=== PATIENT | female | born 1950 | race Caucasian/White ===

== ENCOUNTER 2023-10-18 14:33 | Outpatient (CLI) | payer MEDICARE, SELFPAY ==
--- NOTE | 2023-10-18 14:30 | CRLHL7_ITS ---
For Patients: As a result of the Century Cures Act, medical imaging exams and procedure reports are released immediately into your electronic medical record. You may view this report before your referring provider. If you have questions, please contact your health care provider. DXA BONE MINERAL DENSITY STUDY Reason for exam: Postmenopausal. Current height (in): 69. Weight (lb): 190 Menopause age: Not provided. Ethnicity: White. 1. Have you had a previous hip or vertebral fracture? No. 2. Have you had any fractures during your adult life which did not result from significant trauma (e.g., auto accident)? Yes. 3. Did either of your parents have a hip fracture? No. 4. Do you smoke? No. 5. Have you ever taken Glucocorticoids? No. 6. Do you have rheumatoid arthritis? No. 7. Do you have secondary osteoporosis? No. 8. Do you drink 3 or more alcoholic drinks per day? No. 9. Are you being treated for osteoporosis? No. 10. Have you ever taken any of the following medications: Actonel, Evista, Fosamax, Miacalcin, Reclast, Boniva, Forteo, HRT (i.e., estrogen/hormone therapy), Protelos, Prolia, Vitamin D, Calcium, other ??? please specify. ANSWER: Yes, vitamin D and calcium. 11. Do you have any of the following medical conditions: Anorexia or bulimia, asthma or emphysema, end stage renal disease, hyperparathyroidism, any seizure disorders, cancer, inflammatory bowel diseases, hysterectomy, other ??? please specify. ANSWER: Yes, any seizure disorders. Cancer. 12. What was your maximum height (inches)? 69. 13. Do you perform weight bearing exercise regularly? Yes. 14. Do you regularly consume dairy products? No. 15. Do you drink caffeinated beverages? Yes. If female: 16. At what age did your period start? 15. 17. Are you premenopausal? No. 18. How many full-term pregnancies have you had? 1. 19. Have you ever missed your period for more than 6 months in a row (not including or menopause)? No. TECHNIQUE: Bone mineral density study was performed using the [employer]. FINDINGS: The results of the study expressed as bone mineral density (BMD) are as follows: Neck Left: BMD: 0.796 g/cm2. T-score: -0.5. Z-score: 1.4 Right: BMD: 0.682 g/cm2. T-score: -1.5. Z-score: 0.4 Total Left: BMD: 0.858 g/cm2. T-score: -0.7. Z-score: 0.9 Right: BMD: 0.785 g/cm2. T-score: -1.3. Z-score: 0.3 Radius Left 33%: BMD: 0.663 g/cm2. T-score: -0.5. Z-score: 1.7 IMPRESSION: Osteopenia. *Comparison exams done prior to 04/2020 were performed on different unit, MMIS. COMPARISON: Compared with scan of 07/04/2016, the bone mineral density has increased by 0.5 percent at the hip. FRAX 10-year Fracture Risk Major Osteoporotic Fracture: 16% Hip Fracture: 2.4% Reported Risk Factors: [place] () Neck BMD=0.682, BMI= 28.1, previous fracture Alberto Tejeda M.D. Diagnostic Radiologist [email or web address] PRANEETH/soo vann/Dictated by: Alberto Tejeda MD @ 10/20/2023 10:40:00 AM (Electronically Signed)
--- NOTE | 2023-10-18 15:00 | CRLHL7_ITS ---
For Patients: As a result of the Century Cures Act, medical imaging exams and procedure reports are released immediately into your electronic medical record. You may view this report before your referring provider. If you have questions, please contact your health care provider. BILATERAL SCREENING MAMMOGRAM WITH COMPUTER-AIDED DETECTION AND TOMOSYNTHESIS TECHNIQUE: CC and MLO views were obtained. These mammographic images have been obtained using full-field digital technique. These mammographic images were interpreted with the benefit of computer-aided detection. Breast Tomosynthesis was used in this interpretation. COMPARISON FILM: 02/01/22, 12/01/20, 08/13/19. FINDINGS: The breasts are heterogeneously dense, which may obscure small masses IMPRESSION: There is no radiographic evidence for malignancy. ASSESSMENT: BI-RADS Category 1: Negative RECOMMENDATION: Routine screening mammogram in 1 year. A lay language report of this examination will be provided to the patient. Alberto Tejeda M.D. Diagnostic Radiologist [email or web address] PRANEETH/aníbal / be/Dictated by: Alberto Tejeda MD @ 10/20/2023 10:08:00 AM (Electronically Signed)
== END 2023-10-18 14:34 | disposition home or self-care (01) ==
LOC: RAD 14:33
PROVIDERS: Visit Provider Family Medicine
DX: Z12.31 Encounter for screening mammogram for malignant neoplasm of breast (principal); R92.2 Inconclusive mammogram; Z78.0 Asymptomatic menopausal state; M85.89 Other specified disorders of bone density and structure, multiple sites
CPT/HCPCS: 77063; 77067; 77080

== ENCOUNTER 2024-05-07 06:22 | Day surgery (SDC) | payer MEDICARE, SELFPAY ==
[2024-05-07] VITALS (9 sets, daily range): BP systolic 126–144; BP diastolic 60–74; PULSE 71–77; RESP 16; TEMP 36.4; O2SAT 95–100; BMI 29.6
[2024-05-07] MEDS: BUPIVACAINE 0.5 %/EPI 1:200K INJECTION (07:05)
--- NOTE | 2024-05-07 07:48 | P.ORPRC_ITS ---
Procedure Note Date of procedure: 05/07/24 Procedure: Preop diagnosis: Left hand middle finger stenosing tenosynovitis Postop diagnosis: Left hand middle finger stenosing tenosynovitis Procedure: Left hand middle finger A1 jaky release Anesthesia: Local Surgeon: Bharat Abraham MD assistant professor of criminal justice: Rose Marie Hawkins PA-C EBL: 1 mL Complications: None Specimens: None Drains: None Preoperative antibiotics: None Indications: The patient has a history of left upper extremity middle finger painful catching and locking. Despite appropriate non operative management including flexor tendon sheath corticosteroid injections they continue to have symptoms. Operative intervention was recommended. The risks, benefits alternatives and expected outcomes were discussed in detail. These included but were not limited to: Infection, bleeding, injury to blood vessel or nerve, venous thromboembolism. All questions were answered to their satisfaction. The patient was placed supine on the operating room table. Local anesthesia was established with 0.5% Marcaine with epinephrine and 2% lidocaine with epinephrine. The hand was prepped and draped in the usual sterile fashion. A transverse incision was made centered over the base of the middle finger in the distal palmar crease. Subcutaneous dissection was taken through the palmar fascia to the flexor tendons with the tenotomy scissors. The A1 jaky was released with the 15 blade and tenotomy scissors. Active flexion and extension of the finger shows no catching or locking, no bowstringing of the flexor tendons. The wound was closed with interrupted nylon sutures. A dry dressing was applied. Sponge and needle counts were correct x 2. The patient tolerated the procedure well, there were no apparent complications. They were sent to same day surgery in satisfactory condition. Plan: Use of the hand as tolerates. Discontinue the intraoperative dressing on postoperative day 3 and may get the wound wet as tolerates. Follow up in the office in 2 weeks for a wound check and suture removal.
== END 2024-05-07 08:09 | disposition home or self-care (01) ==
LOC: OR 06:24
PROVIDERS: PCP Family Medicine; Visit Provider Orthopaedic Surgery
PROC: (CPT 26055; principal; 2024-05-07 07:15)
DX: M65.332 Trigger finger, left middle finger (principal); M65.842 Other synovitis and tenosynovitis, left hand
CPT/HCPCS: 26055; J3490

== ENCOUNTER 2024-10-31 12:30 | Outpatient (RCR) | payer MEDICARE, SELFPAY ==
--- NOTE | 2024-08-22 18:31 | OT.OPOE ---
OT Outpatient Ortho Eval OT Outpatient Ortho Eval* Start: 08/22/24 15:30 Freq: Status: Active Protocol: Document 08/22/24 15:30 AMB (Rec: 08/22/24 18:28 AMB [id number]) E-signed By Alejandra Castrejon, OTR/L, CLT, DIRECTOR OF PERSONNEL OT OP Ortho Eval Details Complexity Complexity Low Insurance Information Insurance Information [employer] Outpatient History/Precautions Current Condition/Medical Diagnosis Referring Provider Dr Abraham Medical Diagnoses Z98.89 LUE MF TF release Treatment Diagnosis Weakness LUE R53.1 Stiffness LUE hand M25.642 Hand pain M79.643 Date of Onset DOS: 05/07/24 Other Conditions PMH (copied from ortho chart): Active Problems (Reviewed @ 10:32 by Germaine Antoine ~ LAT ATC) Stiffness of finger joint of left hand (Acute) M25.642 - Stiffness of left hand, not elsewhere classified (ICD-10) S/P trigger finger release ( Acute 05/07/24) left hand middle finger A1 jaky release (05/07/2024, Dr. Abraham) Z98.890 - Other specified postprocedural states (ICD-10) Left radial neuritis (Acute) G56.32 - Lesion of radial nerve, left upper limb (ICD-10 ) History of carpal tunnel release (Acute 02/15/22) left CTR (02/15/2022, Dr. Abraham) Right upper extremity carpal tunnel release (09/28/2018, Dr. Abraham) Z98.890 - Other specified postprocedural states (ICD-10) Medical History (Reviewed @ 10:32 by Germaine Antoine ~ LAT ATC) Sprain of left wrist S63.502A - Unspecified sprain of left wrist, initial encounter (ICD-10) Hepatitis K75.9 - Inflammatory liver disease, unspecified (ICD-10) Fracture of distal end of radius S52.509A - Unspecified fracture of the lower end of unspecified radius, initial encounter for closed fracture (ICD-10) Epilepsy G40.909 - Epilepsy, unspecified, not intractable, without status epilepticus ( ICD-10) Depression F32.A - Depression, unspecified (ICD-10) Seizures R56.9 - Unspecified convulsions (ICD-10) Surgical History (Reviewed @ 10:32 by Germaine Antoine ~ LAT ATC) S/P trigger finger release () Z98.890 - Other specified postprocedural states (ICD-10) History of back surgery Z98.890 - Other specified postprocedural states (ICD-10) Hx of neck surgery Z98.890 - Other specified postprocedural states (ICD-10) S/P trigger finger release () Z98.890 - Other specified postprocedural states (ICD-10) History of carpal tunnel release (02/15/22) Z98.890 - Other specified postprocedural states (ICD-10) Medical/Functional History Medical History Reviewed Yes Prior Level of Function/Mobility Prior to onset of TF, pt did not have pain in her left hand /MF. Social History Employment Status Retired Hobbies [employer] Walking Ortho Subjective Subjective Subjective Pt states she had TF release on 05/07/24 and has been having pain and stiffness ever since , she does not feel the surgery was successful as she feels her finger is still clicking and getting stuck. Pt states she has pain pretty much all the time, but worse in the morning. 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 Hand Pinch/Msw Strength Hand Pinch/Msw Strength Hand Pinch/Msw Strength Left Hand,Right Hand Left Hand Msw Strength Position 1 in Elbow 45 Flexion (lbs) Lateral Pinch Strength (lbs) 12 Three Point Pinch (lbs) 10 Right Hand Msw Strength Position 1 in Elbow 60 Flexion (lbs) Lateral Pinch Strength (lbs) 12 Three Point Pinch (lbs) 12 OT Objective Data Hand Hand Dominance Right Skin/Wounds/Edema Comments 08/22/24 Surgical incisions are well healed. Scar is quite thick and adhered. Pt also has Dupuytren's cording and the surgical scar almost appears to be connected to it, if not connected, it is very close and seems to rub on it. Fascial restrictions are present throughout the palm as well. OT Problems Problems Problems Decreased Strength,Decreased Range of Motion,Decreased Dexterity,Lifting,Gripping Other Problems Opening Containers,Sleeping Patient Potential Good Assessment Assessment Assessment Pt is a 74yo referred to OT to address pain, edema, weakness and stiffness in her LUE following TF release of the MF on 05/07/24. Pt has difficulty with all ADLs and IADLs that require gripping, lifting, or carrying of anything in her left hand. Pt will benefit from skilled OT intervention to address deficits and restore full, pain-free use of her LUE. Occupational Therapy Treatment Plan - OP Potential Rehabilitation Potential Good Set Goals Goals Set with Patient Yes Goals Goals 1. Pt will be independent and compliant with HEP in order to resume full, pain-free use of the involved UE. 3 weeks 2. Pt will demonstrate full, pain-free AROM of the involved UE in order to improve ability to grasp and hold. 6 weeks 3. 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 8 weeks. Target Date 11/21/24 Treatment Plan Treatment Plan Evaluation,Edema Control, Iontophoresis,Joint Mobilization,Manual Therapy, Splinting,Ultrasound,Wound Care/Scar Management, Therapeutic Exercise, Therapeutic Activities,Self Care/Home Management,Education Expected Frequency 1-2x Week Expected Duration 6-8 Weeks Home Program Home Program Home Program Initiated Home Program Specifics 08/22/24 Differential tendon glides, FM, and contrast bath, custom oval 8 splint at night Certification Certification Statement I Certify That: Therapy Services Provided, Therapy Plan Established, Therapy Plan Reviewed Certification Information Clinic ID # [id number] Initial Certification Date 08/22/24 Recertification Due Date 11/20/24 Provider Signature Required Yes Provider Signature Shows Agreement With POC & Medical Necessity Physician NPI Number Write NPI# Here Physician Comment/Change Comment or Changes Physician Signature & Date Requested Please Sign/Date Here
== END 2024-10-31 14:04 | disposition home or self-care (01) ==
PROVIDERS: PCP Family Medicine; Visit Provider Orthopaedic Surgery
DX: R53.1 Weakness (principal); M25.642 Stiffness of left hand, not elsewhere classified; M79.643 Pain in unspecified hand; Z98.890 Other specified postprocedural states; Z51.89 Encounter for other specified aftercare
CPT/HCPCS: 97035; 97140; 97165

== ENCOUNTER 2024-12-18 14:03 | Outpatient (CLI) | payer MEDICARE, SELFPAY ==
--- NOTE | 2024-12-18 14:00 | CRLHL7_ITS ---
For Patients: As a result of the Century Cures Act, medical imaging exams and procedure reports are released immediately into your electronic medical record. You may view this report before your referring provider. If you have questions, please contact your health care provider. BILATERAL SCREENING MAMMOGRAM WITH COMPUTER-AIDED DETECTION AND TOMOSYNTHESIS TECHNIQUE: CC and MLO views were obtained. These mammographic images have been obtained using full-field digital technique. These mammographic images were interpreted with the benefit of computer-aided detection. Breast Tomosynthesis was used in this interpretation. COMPARISON FILM: 10/18/23, 02/01/22, 12/01/20. FINDINGS: The breasts are heterogeneously dense, which may obscure small masses. IMPRESSION: There is no radiographic evidence for malignancy. ASSESSMENT: BI-RADS Category 1: Negative RECOMMENDATION: Routine screening mammogram in 1 year. A lay language report of this examination will be provided to the patient. Robbie Boogie M.D. Diagnostic/Nuclear Medicine Radiologist [email or web address] SUZE/denny SP/Dictated by: Robbie Boogie MD @ 12/19/2024 11:13:00 AM (Electronically Signed)
== END 2024-12-18 14:04 | disposition home or self-care (01) ==
LOC: MAMMO 14:03
PROVIDERS: PCP Family Medicine; Visit Provider Family Medicine
DX: Z12.31 Encounter for screening mammogram for malignant neoplasm of breast (principal); R92.333 Mammographic heterogeneous density, bilateral breasts
CPT/HCPCS: 77063; 77067

== ENCOUNTER 2025-04-04 13:59 | Outpatient (CLI) | payer MEDICARE, SELFPAY ==
--- NOTE | 2025-04-04 14:00 | CRLHL7_ITS ---
For Patients: As a result of the Century Cures Act, medical imaging exams and procedure reports are released immediately into your electronic medical record. You may view this report before your referring provider. If you have questions, please contact your health care provider. INDICATION: Lumbar fusion. Evaluation. COMPARISON: 04/03/2025. TECHNIQUE: Noncontrast CT lumbar spine. FINDINGS: Normal vertebral body alignment. Compared to the previous exam, postop changes diskectomy interbody fusion L2-3, L3-4 and L4-5. Ventral plate screw fixation L4-5. Posterior viktoriya trans beer screw fixation L2-L5 and fixation screws across the iliac bones. As seen on the previous radiograph, there is a linear lucency across the left posterior viktoriya at the level L5 (series 8, image 33) consistent with the hardware fracture. Better seen on the current CT, there is an additional linear lucency across the right posterior fusion viktoriya at the level L5-S1 inferior to the right L5 fixation screw (series 8, image 10; series 6, image 50) which may also represent a hardware fracture. T10-11 I71-17-G68-E9: No spinal canal or neural foraminal narrowing. L1-2: Disc degeneration loss disc height. Vacuum disc. Diffuse disc bulge eccentric to the left. Mild narrowing of the spinal canal. No neural foraminal narrowing. L3-4: Postoperative changes. No narrowing of spinal canal. No neural foraminal narrowing. L4-5: Postoperative changes. No narrowing of spinal canal. No neural foraminal narrowing. L4-5: Postop changes. No spinal canal neural foraminal narrowing. L5-S1: No narrowing of spinal canal. No impingement of the traversing S1 nerve roots. No neural foraminal narrowing. Degenerative changes of the SI joints. Normal paraspinal soft tissues. Vascular calcifications. IMPRESSION: 1. Normal alignment. 2. No vertebral body fractures 3. Stable postop changes L2 through L5. As described, there is linear lucency across the left posterior fusion viktoriya at the level of L5 consistent with the hardware fracture is seen on previous radiograph. Additionally, there is a linear lucency across the right posterior fusion Josemanuel`s global L5-S1 which also likely represents a hardware fracture 4. At L1-2, mild narrowing of the spinal canal 5. No spinal canal or neural foraminal narrowing at the remaining levels Please note that all CT scans at this facility use dose modulation, iterative reconstruction, and/or weight-based dosing when appropriate to reduce radiation dose to as low as reasonably achievable. Dictated by Jackson Goodman MD @ 04/07/2025 12:26:51 PM (Electronically Signed)
== END 2025-04-04 14:00 | disposition home or self-care (01) ==
LOC: CT 14:01
PROVIDERS: PCP Family Medicine; Visit Provider Family Medicine
DX: M54.50 Low back pain, unspecified (principal); M51.26 Other intervertebral disc displacement, lumbar region; Z98.890 Other specified postprocedural states
CPT/HCPCS: 72131

== ENCOUNTER 2025-04-17 09:03 | Outpatient (CLI) | payer MEDICARE, SELFPAY ==
--- NOTE | 2025-04-17 09:15 | CRLHL7_ITS ---
For Patients: As a result of the Century Cures Act, medical imaging exams and procedure reports are released immediately into your electronic medical record. You may view this report before your referring provider. If you have questions, please contact your health care provider. INDICATION: Low back and leg pain. COMPARISON: 04/04/2025. Technique Sagittal T1, T2, and STIR sequences. Axial T1 and T2 weighted sequences. FINDINGS: Lumbar curve convex to the right. In sagittal plane stable grade 1 anterolisthesis of L3 on L4 measures approximately 5 mm. Otherwise, normal alignment. Stable postoperative changes diskectomy interbody fusion L2-3 through L5-S1 with multilevel laminectomies and posterior fusion hardware L2-L5 on the right and L2-4 on the left. Additional trans iliac fixation screws. No suspicious osseous lesions. Normal conus terminates at L1. At T12-L1: No spinal canal neural foraminal narrowing. L1-2: Disc degeneration and loss disc height. Modic type 1 endplate changes. Posterior disc herniation. Moderate severe narrowing of spinal canal. Mild right and moderate left neural foraminal narrowing. L2-3: Postoperative changes. No spinal canal or neural foraminal narrowing. L3-4: Grade 1 anterolisthesis. Postoperative changes. No narrowing of spinal canal. Oblique orientation bilateral foramina with no narrowing. L4-5: Postop changes. No narrowing of spinal canal. Mild narrowing of bilateral foramina. L5-S1: No narrowing of spinal canal. No impingement of the traversing S1 nerve roots. No neural foraminal narrowing. Mild facet arthropathy. Degenerative changes of the SI joints. IMPRESSION: 1. Stable grade 1 anterolisthesis of L3 on L4. Otherwise normal alignment. 2. Stable postop changes L2-3 through L5-S1. Postop changes L2 through L5. 3. At L1-2, disc degeneration. Posterior disc herniation. Moderate to severe narrowing of the spinal canal. Mild right and moderate left neural foraminal narrowing. 4. At L4-5, Mild narrowing of the bilateral neural foramina Dictated by Jackson Goodman MD @ 04/17/2025 3:29:56 PM (Electronically Signed)
== END 2025-04-17 09:04 | disposition home or self-care (01) ==
LOC: MRI 09:04
PROVIDERS: PCP Family Medicine; Visit Provider Orthopaedic Surgery Orthopaedic Surgery of the Spine
DX: M54.50 Low back pain, unspecified (principal); M51.369 Other intervertebral disc degeneration, lumbar region without mention of lumbar back pain or lower extremity pain; M79.609 Pain in unspecified limb
CPT/HCPCS: 72148

== ENCOUNTER 2025-07-07 20:26 | Emergency (ER) | payer MEDICARE, SELFPAY ==
--- OUTSIDE RECORDS SUMMARY | 2025-07-07 20:29 | XMS_ITS | Encounter Summary ---
Author Organization [facility] Address [address] [place] [address] Care Team Providers Care Char Conveyor Tender Name Role Phone Gisell Stephenson MD Primary Care Provider + Encounter Details Date Type Department Care Team (Late st Contact Info) Description 08/26/2015 Orders Only [facility] [address] [place] [address] Kanu Woody MD 280 [facility] [address] [facility] [address] [place] [address] Preoperative examination, unspecified (Primary Dx) Social History Tobacco Use Types Packs/Day Years Used Date Smoking Tobacco: Never Smokeless Tobacco: Never Alcohol Use Standard Drinks/Week Comments No 0 (1 standard drink = 0.6 oz pur e alcohol) Comments No Sex and Gender Information Value Date Recorded Sex Assigned at Not on file Legal Sex Female 9:39 AM CDT Gender Identity Not on file Sexual Orientation Not on file documented as of this encounter Plan of Treatment Not on file documented as of this encounter Visit Diagnoses Diagnosis Preoperative examination, unspecified- Primary documented in this encounter Care Teams Char Conveyor Tender Relationship Specialty Start Date End Date Gisell Stephenson MD [facility] [id number] [place] [id number] PCP - General Family Practice 08/13/14 documented as of this encounter
--- OUTSIDE RECORDS SUMMARY | 2025-07-07 20:29 | XMS_ITS | Encounter Summary ---
Author Organization [facility] Address [address] [place] [address]. [place] [address] Care Team Providers Care Lead Injection Mold Technician Name Role Phone Gisell Stephenson MD Primary Care Provider + Encounter Details Date Type Department Care Team (Late st Contact Info) Description 08/26/2015 Orders Only [facility] [address] [place] [address] Kanu Woody MD 280 [facility] [address] [facility] [address] [place] [address] Preoperative examination, unspecified (Primary Dx) Social History [...] on file documented as of this encounter Results * Methicillin Resistant Staph Aureus PCR (08/27/2015 5:45 PM CDT) Specimen Description [facility] Methicillin Resist/Sens S. aureus PCR Negative MRSA Negative: SA Negative MRSA and Staphylococcus aureus target DNA not detected, presumed negative for MRSA and SA colonization or the number of bacteria present may be below the limit of detection for the assay. FDA approved assay performed using [employer] GeneXpert(R) real-time PCR. NEG [facility] 08/27/2015 5:45 PM CDT 08/27/2015 6:24 PM CDT us Kanu Woody MD LAB - MICRO GENERAL ORDER MEGHAN Final Result [facility] [address] [place] [address], [facility] [address] [place] [address], [facility] [phone] documented in this encounter Visit Diagnoses Diagnosis Preoperative examination, unspecified- Primary documented in this encounter Care Teams Lead Injection Mold Technician Relationship Specialty Start Date End Date Gisell Stephenson MD [facility] [id number] [place] [phone] PCP - General Family Practice 08/13/14 documented as of this encounter
--- OUTSIDE RECORDS SUMMARY | 2025-07-07 20:29 | XMS_ITS | Encounter Summary ---
Author Organization [facility] Address [address] [place] [address] Care Team Providers Care Action Installer Name Role Phone Gisell Stephenson MD Primary Care Provider + Encounter Details Date Type Department Care Team (Late st Contact Info) Description 08/13/2014 [facility] Only [facility] [address] [place] [address] Kanu Woody MD 280 [facility] [address] [facility] [address] [place] [address] Preoperative examination, unspecified (Primary Dx) Social History [...] Primary documented in this encounter Care Teams Action Installer Relationship Specialty Start Date End Date Gisell Stephenson MD [facility] [id number] [place] [phone] PCP - General Family Practice 08/13/14 documented as of this encounter
--- OUTSIDE RECORDS SUMMARY | 2025-07-07 20:29 | XMS_ITS | Encounter Summary ---
Author Organization [facility] Address [address] [place] [address]. [place] [address] Care Team Providers Care Hydraulic Jack Mechanic Name Role Phone Gisell Stephenson MD Primary Care Provider + Encounter Details Date Type Department Care Team (Late st Contact Info) Description 09/23/2015 [facility] Only [facility] [address] [place] [address] Kanu oWody MD [address] [facility] [address] [place] [address] Pre-operative laboratory examination (Primary Dx) Social History Tobacco Use Types [...] Results * Methicillin Resistant Staph Aureus PCR (09/23/2015 2:45 PM CDT) Specimen Description [facility] Methicillin Resist/Sens S. aureus PCR Negative MRSA Negative: SA Negative MRSA and Staphylococcus aureus target DNA not detected, presumed negative for MRSA and SA colonization or the number of bacteria present may be below the limit of detection for the assay. FDA approved assay performed using [employer] GeneXpert(R) real-time PCR. [facility] 09/23/2015 2:45 PM CDT 09/23/2015 3:14 PM CDT us Kanu Woody MD LAB - MICRO GENERAL ORDER MEGHAN Final Result [facility] [address] [place] [address], [facility] [address] [place] [address], [facility] [phone] documented in this encounter Visit Diagnoses Diagnosis Pre-operative laboratory examination- Primary Pre-procedural laboratory examination documented in this encounter Care Teams Hydraulic Jack Mechanic Relationship Specialty Start Date End Date Gisell Stephenson MD [address] [address] PCP - General Family Practice 08/13/14 documented as of this encounter
--- OUTSIDE RECORDS SUMMARY | 2025-07-07 20:29 | XMS_ITS | Clinical Summary ---
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 [facility] Allergies Active Allergy Reactions Criticality Noted Date Comments Bupropion Headache 10/31/2022 Morphine Itching 10/31/2022 Oxycodone Itching,Other, see comments 10/31/2016 Irritable and weird dreams Sulfa Antibiotics Hives,Rash High 08/13/2014 Medications divalproex (DEPAKOTE ER) 500 MG 24 hour release tablet Take 1 Tablet (500 mg) by mouth two times a day. 11/13/2024 Active escitalopram oxalate (LEXAPRO) 20 MG tablet Take 1.5 Tablets (30 mg) by mouth daily. 09/29/2024 Active hyoscyamine (LEVSIN) 0.125 MG tablet Take 1 Tablet (0.125 mg) by mouth every 4 hours as needed. 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 Gender Identity Not on file Sexual Orientation Not on file Plan of Treatment Health Maintenance Due Date Last Done Comments Colon Cancer Screening Plan Due 1950 Hep C Screening (Preventive Services) 1950 Medicare Welcome Visit 1950 Cholesterol 1997 Zoster/Shingles Vaccine (2 of 3) 11/18/2015 09/23/2015 Mammogram 08/13/2020 08/13/2019, 07/28, 08/08/2017 DTaP/Tdap/Td Vaccine (2 - Tdap) 06/26/2022 06/26/2012, 08/27/2002 Pneumococcal Vaccine 50+ Yrs (3 of 3 - PCV) 07/26/2023 07/26/2018, 09/23/2015, 07/26/2015 COVID-19 Vaccine ( season) 2025 08/28/2024, 11/06/2023, 06/27/2023, Additional history exists Influenza Vaccine (#1) 2025 , 11/06/2023, 09/21/2022, Additional history exists RSV Vaccine (1 - 1-dose 75+ series) 2027 Dexa Completed 10/18/2023, 10/18/2023 HepA Vaccine Aged Out No longer eligi ble based on patient's age to complete this topic HepB Vaccine Aged Out No longer eligi ble based on patient's age to complete this topic Hib Vaccine Aged Out No longer eligi ble based on patient's age to complete this topic MCV4 Vaccine Aged Out No longer eligi ble based on patient's age to complete this topic Meningococcal B Vaccine Aged Out No l onger eligible based on patient's age to complete this topic Insurance [facility] MEDICARE
--- OUTSIDE RECORDS SUMMARY | 2025-07-07 20:29 | XMS_ITS | Clinical Summary ---
Author Organization [email or web address] [facility] Address [address] [place] [id number] Care Team Providers Care Dental Ceramist Helper Name Role Phone Gisell Stephenson MD Primary Care Provider + Allergies Active Allergy Reactions Criticality Noted Date Comments Morphine Itching 12/05/2013 Oxycodone Itching,Other - Describe In Comment Field 10/31/2016 Irritable and weird dreams Sulfa (Sulfonamide Antibiotics) Hives 12/05/2013 Bupropion Headache 08/13/2014 Medications triamcinolone (ARISTOCORT; KENALOG) 0.1 % cream Apply topically to affected area(s) 2 times daily if needed (For Flares). 05/20/20 21 Active hyoscyamine (LEVSIN) 0.125 mg tabletIndication s:Irritable bowel syndrome with diarrhea Take 1 Tablet (0.125 mg) by mouth every 4 hours if needed for Colic. 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 180 Tablet 3 08/15/20 24 Active escitalopram oxalate (LEXAPRO) 20 mg tabletIndication s:Major depressive disorder, recurrent episode, in full remission TAKE 1 AND 1/2 TABLETS BY MOUTH DAILY 135 Tablet 4 08/15/20 24 Active acetaminophen (TYLENOL EXTRA STRENGTH ORAL) Take 1,000 mg by mouth two times daily. Active cyclobenzaprine (FLEXERIL) 10 mg tablet Take 10 mg by mouth at bedtime. 05/26/20 25 Active HYDROmorphone 2 mg tabletIndication s:Spinal stenosis, lumbar region, with neurogenic claudication Take 1-2 Tablets (2-4 mg) by mouth every 4 hours if needed for Pain. 35 Tablet 06/29/20 25 Active sennosides-docus ate (SENOKOT S) (8.6-50 mg) tabletIndication s:Spinal stenosis, lumbar region, with neurogenic claudication Take 1-2 Tablets by mouth two times daily. 30 Tablet 06/29/2025 9:28 AM CDT 06/29/20 25 Active DMEIndications:P lantar fasciitis, bilateral,Right foot drop Custom AFO 1 unit 08/24/20 17 025 Discontinu ed(Other - add note to specify (E-cancel not sent)) albuterol HFA (VENTOLIN HFA) 90 mcg/actuation inhalerIndicatio ns:Bronchitis Inhale 2 Puffs by mouth 4 times daily if needed. 1 Inhaler 3 10/28/20 19 025 Discontinu ed(*Patien t states no longer taking) durable medical equipment (DME)Indications :Nerve pain AFO for right foot drop 1 Each 04/08/20 21 025 Discontinu ed(Other - add note to specify (E-cancel not sent)) oxiconazole nitrate 1% cream (OXISTAT) 1 % topical cream 11/05/20 20 025 Discontinu ed(Other - add note to specify (E-cancel not sent)) ketoconazole 2% shampoo (NIZORAL) 2 % shampoo WASH TO AFFECTED AREA UNDER BREASTS 2-3 TIMES WEEKLY LATHER AND LET SIT FOR SEVERAL MINUTES BEFORE RINSING 07/29/20 22 025 Discontinu ed(Other - add note to specify (E-cancel not sent)) durable medical equipment (DME)Indications :Plantar fasciitis, bilateral,Right foot pain Custom functional orthotics, history right foot pain, plantar fasciitis, right foot pronation 1 Each 10/10/20 23 025 Discontinu ed(Other - add note to specify (E-cancel not sent)) Active Problems Problem Noted Date Diagnosed Date Anemia due to acute blood loss 07/07/2025 Other specified nutritional anemias 07/07/2025 S/P lumbar spinal fusion 06/26/2025 Spinal stenosis, lumbar see on, with neurogenic claudication 06/26/2025 Hyperlipidemia 08/26/2022 Plantar fasciitis, bilateral 08/24/2017 Right foot drop 08/24/2017 Osteopenia of both thighs 08/09/2017 Overview (08/09/2017): 2017-- left femoral neck -1.2; right -1.4. 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 05/27/2015 Overview (05/27/2015): Severe bilaterally Major depressive disorder, r ecurrent episode, in full remission 12/11/2013 Encounters Date Type Department Care Team Description 07/07/[address] [address] Gisell Stephenson MD Lab (iron infusion ) 07/02/2025 12:45 PM CDT Office Visit [address] [address] Gisell Stephenson MD Hospital F/U ([facility]) 07/02/2025 Travel 07/01/[address] [address] Gisell Stephenson MD Verbal Order 07/01/[address] [address] Gisell Stephenson MD Form 06/30/[address] [address] Gisell Stephenson MD Error-please disregard 06/30/[address] [address] Gisell Mota MD Outside Order (Verbal,occ,phys,skill ed) 06/30/2025 Patient Outreach [facility] [id number] [place] [id number] Luz Ndiaye, RN Primary RN Care Management; Hospital F/U (Spinal stenosis, lumbar region, with neurogenic claudication, DOD 06/29/2025) 06/29/[address] [address] Gisell Stephenson MD Error-please disregard (ER) 06/26/2025 7:49 AM CDT Anesthesia Event [address] [address] Yessi Lawrence CRNA Dahl, Ashley Rose Dragavon, MD 06/26/2025 7:25 AM CDT - 06/26/2025 1:10 PM CDT Surgery [address] [address] Иван Elkins MD ALIF - Anterior Lumbar Interbody Fusion Levels: L5 to: S1 PSF - Posterior Spine Fusion Levels: T11 to: L2 Decompression - Laminectomy with facetectomy/foraminoto my Levels: L1 to: L2 TLIF - Transforaminal Lumbar Interbody Fusion Levels: L1 to: L2 Left Exploration of Fusion Instrumentation Replacement L2 to: ilium instrumentation/bone graft 06/26/2025 5:44 AM CDT - 06/29/2025 12:43 PM CDT Hospital Encounter [address] [address] Иван Elkins MD Spinal stenosis, lumbar region, with neurogenic claudication; S/P lumbar spinal fusion Discharge Disposition: Home Health 06/26/2025 Travel 06/19/2025 Orders Only [address] [address] Gisell Stephenson MD 1 scan: (1-Ord) 06/18/2025 06/18/2025 1:15 PM CDT Office Visit [address] [address] Gisell Stephenson MD Pre-Op Exam 06/17/2025 Travel 06/14/2025 3:15 PM CDT Ancillary Procedure [facility] [address] [facility] [address] [place] [address] 06/14/2025 2:30 PM CDT Ancillary Procedure [facility] [address] [facility] [address] [place] [address] 06/14/2025 Travel 06/12/2025 Orders Only [facility] Scanner 1 scan: (1-Ord) TAREEN DERMATOLOGY, FULL BODY SKIN EXAM, 06/12/2025 06/09/2025 Transcribe Orders [facility] [place] [phone] Иван Elkins MD 05/05/2025 11:00 AM CDT Ancillary Procedure [facility] [address] [place] [address] 05/05/2025 Travel 04/24/2025 Transcribe Orders [facility] [phone] Иван Elkins MD 04/23/2025 Telephone [facility] [address] [place] [address] Adalberto Ji MD Questions 04/23/2025 Transcribe Orders [facility] [address] [place] [address] Adalberto Ji MD 04/17/2025 Orders Only [facility] Scanner 1 scan: (1-Ord) [place], MR LUMBAR SPINE WO CONTRAST, 04/17/2025 from Last 3 Months Immunizations Immunization Administration Dates Next Due COVID-19 vaccine (Moderna 100mcg/0.5mL) PF, MDV 02/22/2022 COVID-19 vaccine (Moderna 50mcg/0.5mL) 12YO+ BIVALENT PF, MDV 08/26/2022 Influenza, High-dose Inactivated 10/20/2024 Influenza, High-dose Quadriv alent Inactivated 11/06/2023,09/22/2022,09/24/2020 Influenza, IIV3 (Age >=3 years) 10/17/20 13,09/18/2012,08/31/2010,2004 Influenza, IIV4 10/06/2016,08/28/2015,08/23/2014 Influenza, Inactivated AIIV4 (Age 65+ Years) Preserv Free 08/26/2021 Influenza, Inactivated IIV3 (Age 65+ Years) Preserv Free 09/19/2019,10/04/2018 Influenza, Whole Virus 10/07/2003 Influenza,CCIIV4 PRESERV FREE 10/13/2017 Pneumococcal Poly,23-Valent (Pneumovax) 09/23/2015,07/26/2015 Pneumococcal conj 13-Valent (Prevnar 13) 07/26/2018 Td (Age >=7 Years) 08/26/2022,08/27/2002 Tdap 06/26/2012 Zoster (Shingrix-RZV, recombinant) 05/20/2025, Zoster (Zostavax-ZVL, live) 09/23/2015 Family History Medical History Relation Name Comments Good Health Brother 1 Psychiatric illness Brother 1 Alcoholism Brother 2 Kidney cancer Brother 2 Alcoholism Brother 3 Kidney cancer Brother 3 Other Father Other Mother Leukemia Sister 2 Nandini .2020 Good Health Son Psychiatric illness Son Cancer-breast No Family History Relation Name Status Comments Brother 1 Alive Brother 2 (Age 60's) Brother 3 (Age 39) Brother 4 Alive Brother 5 Alive Father Mother Sister 1 Alive Sister 2 Nandini Alive Son Alive Social History Tobacco Use Types Packs/Day Years Used Date Smoking Tobacco: Former Cigarettes 2 19 1 966 - 1985 Smokeless Tobacco: Never Tobacco Cessation:Counseling Given: Not Answered Alcohol Use Standard Drinks/Week Comments No 0 (1 standard drink = 0.6 oz pur e alcohol) family hx of alcoholism PHQ-2 Answer Date Recorded PHQ-2 TOTAL SCORE 0 08/15/2024 Social Connections Answer Date Recorded Do you often feel lonely or isolated from those around you? 0 08/15/2024 Financial Resource Strain Answer Date R ecorded Difficulty of Paying Living Expenses 3 06/20/2024 Difficulty of Paying Living Expenses Not on file 06/20/2024 Food Insecurity Answer Date Recorded Do you worry your food will run out before you are able to buy more? 1 08/15/2024 Transportation Needs Answer Date Record ed Does lack of transportation keep you from medica l appointments? 1 08/15/2024 Does lack of transportation keep you from work, meetings or getting things that you need? 1 08/15/2024 Housing Stability Answer Date Recorded What is your housing situation today? 1 08/15/2024 Utilities Answer Date Recorded Do you have trouble paying f or utilities (for example, heat, electricity, water, phone)? 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 Gender Identity Not on file Sexual Orientation Not on file Obstetrics History Para Term AB IAB SAB Ectopic Multiple Livin g Live Births 1 Date Outcome GA Total Labor Labor/2nd/3rd Weight Sex Type Anes PTL Ritika A1 A5 Name Clin Term Last Filed Vital Signs Vital Sign Reading Time Taken Comments Blood Pressure 120/66 07/02/2025 12:45 PM CDT Pulse 88 07/02/2025 12:45 PM CDT Temperature 36.7 C (98.1 F) 06/29/2025 8:46 AM CDT Respiratory Rate 18 06/29/2025 8:46 AM CDT Oxygen Saturation 97% 06/29/2025 8:4 6 AM CDT Inhaled Oxygen Concentration - - Weight 96.2 kg (212 lb) 07/02/2025 12:4 5 PM CDT with purse and shoes Height 172.7 cm (5' 8) 06/26/2025 6:20 AM CDT Body Mass Index 32.23 06/26/2025 6:20 AM CDT Plan of Treatment Health Maintenance Due Date Last Done Comments Hepatitis C screening for age 18-79 1970 RSV vaccine for adults or (1 - Risk 60-74 years 1-dose series) 2012 Pneumococcal series for age 50+ (3 of 3 - PCV20 or PCV21) 07/26/2023 07/26/2018, 09/23/2015, 07/26/2015 COVID-19 vaccine series ( season) 2025 08/28/2024, 11/06/2023, 06/27/2023, Additional history exists Influenza Vaccine (#1) 2025 , 08/26/2021, 09/19/2019, Additional history exists Depression screening for age 12+ 08/15/2025 08/15/2024, 07/28/2023, 08/26/2022, Additional history exists Medicare Wellness for age 65+ 08/16/2025 08/15/2024, 07/28/2023, 08/26/2022, Additional history exists Mammogram for age 45-75 12/18/2025 12/18/19, 10/18/2023, 02/01/2022, Additional history exists BMI (ht and wt on same day) for age 18+ 06/18/2026 06/18/2025, 08/15/2024, 07/28/2023, Additional history exists Lipids for age 45-75 08/15/2029 08/15/2024, 08/26/2022, 08/26/2021, Additional history exists Tetanus booster 08/26/2032 08/26/2022, 05/29, 08/27/2002 Colonoscopy through age 75 12/14/203212/14, 12/14/2022, 12/14/2022 DEXA/DXA scan for age 65+ Completed 2024, 10/18/2023, 08/08/2017 Zoster (shingles) series for age 50+ Completed 05/20/2025, 02/20/2025, 09/23/2015 Hepatitis B series for 19+ Aged Out N o longer eligible based on patient's age to complete this topic Medical Devices Implanted Type Area Telehealth Nurse Device Identifier Shelf Expiration Date Model / Serial / Lot Bone 1-4mm 90cc Medtronic Chips Canclls Freeze Dried - [id number] Implanted:Qt y: 1 on 06/26/2025 by Иван Elkins MD at [facility] Spine Implants N/A: Lumbar Vertebrae Medtronic Spine/Ortho 07/12/2028 [id number] / [id number] / [id number] Description:At 0945 10cc of crushed cancellous bone were implanted into the anterior lumbar spine Screw Lmbr Post 6.5x35mm Solera 5.5/6 Va Cocr - Sna Implanted:Qt y: 2 on 06/26/2025 by Иван Elkins MD at [facility] Spine Implants N/A: Lumbar Vertebrae Medtronic Spine/Ortho [id number] / NA / NA Description:Posterior lumbar spine Cnnctr Lmbr 6x5.5x35mm Lat Top Cd Horizon - Sna Implanted:Qt y: 2 on 06/26/2025 by Иван Elkins MD at [facility] Spine Implants N/A: Lumbar Vertebrae Medtronic Spine/Ortho [id number] / NA / NA Description:Posterior lumbar spine Patrick Lmbr 500x5.5mm Solera 5.5/6 Stra Titnm Alloy - Sna Implanted:Qt y: 1 on 06/26/2025 by Иван Elkins MD at [facility] Spine Implants N/A: Lumbar Vertebrae Medtronic Spine/Ortho [id number] / NA / NA Description:Posterior lumbar spine Putty [place] 5cc Magnetos - Sna Implanted:Qt y: 1 on 06/26/2025 by Иван Elkins MD at [facility] Spine Implants N/A: Lumbar Vertebrae Normal AG 01/25/2030 [id number] / NA / [id number] Description:Anterior lumbar spine Spacer Lmbr [id number] 8 Deg Sm Sovereign Stand Alone - Sna Implanted:Qt y: 1 on 06/26/2025 by Иван Elkins MD at [facility] Spine Implants N/A: Lumbar Vertebrae Medtronic Spine/Ortho 03/11/2033 [id number] / NA / [id number] Description:Anterior lumbar spine Screw Lmbr 5.5x20mm Sovereign Stand Alone - Sna Implanted:Qt y: 1 on 06/26/2025 by Иван Elkins MD at [facility] Spine Implants N/A: Lumbar Vertebrae Medtronic Spine/Ortho [id number] / NA / NA Description:Anterior lumbar spine 24mm X 8mm [place] Implanted:Qt y: 1 on 06/26/2025 by Иван Elkins MD at [facility] Spine Implants N/A: Lumbar Vertebrae Medtronic Spine/Ortho 12/05/2032 [id number] / NA / [id number] Description:Posterior lumbar spine Set Screw Lmbr Legacy 5.5 Titnm Breakoff - Sna Implanted:Qt y: 6 on 06/26/2025 by Иван Elkins MD at [facility] Spine Implants N/A: Lumbar Vertebrae Medtronic Spine/Ortho [id number] / NA / NA Description:Posterior lumbar spine Screw Lmbr Post 6.5x50mm Solera 5.5/6 Va Cocr - Sna Implanted:Qt y: 4 on 06/26/2025 by Иван Elkins MD at [facility] Spine Implants N/A: Lumbar Vertebrae Medtronic Spine/Ortho [id number] / NA / NA Description:Posterior lumbar spine Screw Lmbr Post 5.5x50mm Solera 5.5/6 Va Cocr - Sna Implanted:Qt y: 2 on 06/26/2025 by Иван Elkins MD at [facility] Spine Implants N/A: Lumbar Vertebrae Medtronic Spine/Ortho [id number] / NA / NA Description:Posterior lumbar spine Set Screw Lmbr Ant 5.5mm Solera Break Off - [id number] Implanted:Qt y: 13 on 06/26/2025 by Иван Elkins MD at [facility] N/A: Lumbar Vertebrae Medtronic Spine/Ortho [id number] / / Bone 1-4mm 30cc Medtronic Chips Canclls Freeze Dried - [id number] Implanted:Qt y: 1 on 06/26/2025 by Иван Elkins MD at [facility] N/A: Lumbar Vertebrae Medtronic Spine/Ortho [id number] 07/20/2029 [id number] / [id number] / Bone 1-4mm 60cc Medtronic Fine Canclls Freeze Dried - [id number] Implanted:Qt y: 1 on 06/26/2025 by Иван Elkins MD at [facility] N/A: Lumbar Vertebrae Medtronic Spine/Ortho [id number] 10/01/2028 [id number] / [id number] / Explanted Type Area Telehealth Nurse Device Identifier Shelf Expiration Date Model / Serial / Lot Pin Spine 100mm Perc Reference - Sna Explanted:Qt y: 1 on 06/26/2025 by Иван Elkins MD at [facility] Spine Implants N/A: Lumbar Vertebrae [employer]onic [employer] 02/17/2026 [id number] / NA / [id number] Description:Posterior lumbar spine Procedures Procedure Name Priority Date/Time Associated Diagnosis Comments BASIC METABOLIC PANEL Routine 07/02/2025 1:31 PM CDT Status post lumbar spinal fusion VITAMIN B12 Routine 07/02/2025 1:31 PM CDT Anemia due to acute blood loss IRON PLUS IRON BINDING CAP Routine 07/02/2025 1:31 PM CDT Anemia due to acute blood loss CBC W PLT NO DIFF Routine 07/02/2025 1:31 PM CDT Anemia due to acute blood loss HEMOGLOBIN Early AM 06/28/2025 7:59 AM CDT TRANSFUSE RBC (NURSE COMMUNICATION ORDER) STAT 06/27/2025 5:41 PM CDT RBC W/O TYPE & SCREEN STAT 06/27/2025 2:12 PM CDT RED BLOOD CELLS EA UNIT STAT 06/27/2025 2:11 PM CDT HEMOGLOBIN A1C MONET 06/27/2025 10:25 AM CDT HEMOGLOBIN Early AM 06/27/2025 10:25 AM CDT MAGNESIUM Early AM 06/27/2025 10:25 AM CDT BASIC METABOLIC PANEL Early AM 06/27/2025 10:25 AM CDT HEMOGLOBIN STAT 06/26/2025 6:48 PM CDT CBC WITH AUTO DIFFERENTIAL Today 06/26/2025 4:30 PM CDT CBC WITH AUTO DIFFERENTIAL Today 06/26/2025 4:30 PM CDT BASIC METABOLIC PANEL Today 06/26/2025 4:30 PM CDT XR C-ARM EQUAL OR GREATER 2 HR Routine 06/26/2025 3:17 PM CDT XR O-ARM FLUORO 31-120 MINUTES Routine 06/26/2025 2:30 PM CDT HEMOGLOBIN STAT 06/26/2025 1:34 PM CDT TRANSFUSE RBC (NURSE COMMUNICATION ORDER) Today 06/26/2025 11:34 AM CDT HCHG KIT PR5 Routine 06/26/2025 10:39 AM CDT HCHG STATLOCK PR1 Routine 06/26/2025 10:39 AM CDT HCHG DRSG PR5 Routine 06/26/2025 10:39 AM CDT HCHG DRSG PR1 Routine 06/26/2025 10:39 AM CDT HCHG TUBING PR20 Routine 06/26/2025 10:39 AM CDT HCHG TUBING PR1 Routine 06/26/2025 10:39 AM CDT HCHG CATH INFUSION PR10 Routine 06/26/2025 10:39 AM CDT ARTERIAL BLOOD GAS STAT 06/26/2025 10:28 AM CDT HEMOGLOBIN STAT 06/26/2025 10:28 AM CDT XR SPINE LUMBAR 2 VIEWS PORTABLE Routine 06/26/2025 10:01 AM CDT XR SPINE 1 VIEW PORTABLE Routine 06/26/2025 9:41 AM CDT TRANSFUSE RBC (NURSE COMMUNICATION ORDER) Today 06/26/2025 9:31 AM CDT HEMOGLOBIN STAT 06/26/2025 9:15 AM CDT RBC W/O TYPE & SCREEN STAT 06/26/2025 9:00 AM CDT RED BLOOD CELLS EA UNIT STAT 06/26/2025 9:00 AM CDT RED BLOOD CELLS EA UNIT STAT 06/26/2025 9:00 AM CDT RED BLOOD CELLS EA UNIT STAT 06/26/2025 9:00 AM CDT ENDOTRACHEAL TUBE Routine 06/26/2025 8:24 AM CDT SURGICAL EXPOSURE LUMBAR SPINE ANTERIOR APPROACH Tier 4: > 90 days 06/26/2025 7:29 AM CDT Stenosis, Lumbar - w/Neurogenic Claudication M48.062 Pseudoarthrosis M96.0 fusion status Z98.1 Case Notes 300 MINS- TABLEC-ARM PORTABLE XRAYFLIP INSERT [facility] [facility] cannot cover case per Alejandro- Sent Heath w/Pronav email for 744 coverage 06/06 ANW // Confirmed via email w/Heath 06/09 ANWCELL SAVER-Confirmed for 744 w/Maira #[id number] 06/06 ANW // CONFIRMED WITH MAIRA 06/25 ANW Solera 5.5/6.0 Adaptix SovereignSolera [id number] x3Bm adds Mp addsPMI Ballast x2 confirmed w/Thomas Stewart [phone] 06/19 JTAutograft Cortical/Cancellous MagnetO's (Synthetic) Special Needs 5' 8.5, 89.9 kg, BMI 29.68Seizure precautions orderedHOH FUSION ANTERIOR POSTERIOR SPINE LEVEL 02 Tier 4: > 90 days 06/26/2025 7:29 AM CDT Stenosis, Lumbar - w/Neurogenic Claudication M48.062 Pseudoarthrosis M96.0 fusion status Z98.1 Case Notes 300 MINS- TABLEC-ARM PORTABLE XRAYFLIP INSERT [facility] [facility] cannot cover case per Alejandro- Sent Heath w/Pronтатьяна email for 744 coverage 06/06 ANW // Confirmed via email w/Heath 06/09 ANWCELL SAVER-Confirmed for 744 w/Maira #[id number] 06/06 ANW // CONFIRMED WITH MAIRA 06/25 ANW Solera 5.5/6.0 [employer]ix SovereignSolera [id number] x3Bm adds Mp addsPMI Ballast x2 confirmed w/Thomas Stewart [phone] 06/19 JTAutograft Cortical/Cancellous MagnetO's (Synthetic) Special Needs 5' 8.5, 89.9 kg, BMI 29.68Seizure precautions orderedHOH GLUCOSE METER Timed 06/26/2025 6:29 AM CDT TYPE & SCREEN Preop 06/26/2025 6:26 AM CDT SCAN-CARDIAC STRIP 06/26/2025 12:00 AM CDT CBC W PLT NO DIFF Routine 06/18/2025 2:20 PM CDT Hyperlipidemia, unspecified hyperlipidemia type EKG 12 LEAD Routine 06/18/2025 12:00 AM CDT Hyperlipidemia, unspecified hyperlipidemia type MR SPINE THORACIC WO Routine 06/14/2025 3:13 PM CDT Spinal stenosis of thoracic region MR SPINE LUMBAR WO Routine 06/14/2025 3:12 PM CDT Lumbar stenosis with neurogenic claudication SCAN-OPERATIVE/PROC EDURE REPORT 06/12/2025 12:00 AM CDT XR DXA BONE DENSITY 2 SITES AXIAL Routine 05/05/2025 11:10 AM CDT Osteopenia SCAN-MRI INTERPRETATION 04/17/2025 12:00 AM CDT XR MAMMO HANNAH BILAT SCREEN Routine 12/18/2024 12:00 AM 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 Other 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 mammogram LIPID PANEL W REFLEX MEASURED LDL Routine 08/15/2024 12:36 PM CDT Hyperlipidemia, unspecified hyperlipidemia type COLONOSCOPY SCREENING Routine 12/14/2022 8:45 AM 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 Screening for colon cancer from Last 3 Months or Most Recently Relevant to Health Maintenance Results * (ABNORMAL) IRON PLUS IRON BINDING CAP (07/02/2025 1:31 PM CDT) Pathologist [facility] IRON, TOTAL 29(L) 45 - 160 mcg/dL 07/03/2025 4:47 AM CDT [facility] IRON BINDING CAPACITY 251 250 - 450 mcg/dL (calc) 07/03/2025 4:47 AM CDT [facility] % SATURATION 12(L) 16 - 45 % (calc) 07/03/2025 4:47 AM CDT [facility] Blood BLOOD SPECIMEN / Unknown [facility] / Unknown 07/02/2025 1:31 PM CDT 07/02/2025 1:32 PM CDT us Gisell Stephenson MD CHEMISTRY Final Re sult [facility] [address] [place] [address], [place] [phone] * (ABNORMAL) CBC W PLT NO DIFF (07/02/2025 1:31 PM CDT) Only the most recent of2 resultswithin the time period is included. WHITE BLOOD CELL COUNT 8.5 3.8 - 10.8 Thousand/ uL 07/03/2025 3:44 AM CDT [facility] RED BLOOD CELL COUNT 2.68(L) 3.80 - 5.10 Million/u L 07/03/2025 3:44 AM CDT [facility] HEMOGLOBIN 8.0(L) 11.7 - 15.5 g/dL 07/03/2025 3:44 AM CDT [facility] HEMATOCRIT 25.3(L) 35.0 - 45.0 % 07/03/2025 3:44 AM CDT [facility] MCV 94.4 80.0 - 100.0 fL 07/03/2025 3:44 AM CDT [facility] MCH 29.9 27.0 - 33.0 pg 07/03/2025 3:44 AM CDT [facility] MCHC 31.6(L) 32.0 - 36.0 g/dL 07/03/2025 3:44 AM CDT [facility] Comment: For adults, a slight decrease in the calculated MCHC value (in the range of 30 to 32 g/dL) is most likely not clinically significant; however, it should be interpreted with caution in correlation with other red cell parameters and the patient's clinical condition. RDW 13.5 11.0 - 15.0 % 07/03/2025 3:44 AM CDT [facility] PLATELET COUNT 342 140 - 400 Thousand/ uL 07/03/2025 3:44 AM CDT [facility] MPV 9.4 7.5 - 12.5 fL 07/03/2025 3:44 AM CDT [facility] Blood BLOOD SPECIMEN / Unknown [facility] / Unknown 07/02/2025 1:31 PM CDT 07/02/2025 1:32 PM CDT Gisell Stephenson MD HEMATOLOGY Final Re sult Performing Organization Address [facility] de Phone Number [facility] [address] [address], * VITAMIN B12 (07/02/2025 1:31 PM CDT) Pathologist [facility] [place] VITAMIN B12 374 200 - 1100 pg/mL 07/03/2025 5:28 AM CDT [facility] Comment: Please Note: Although the reference range for vitamin B12 is 200-1100 pg/mL, it has been reported that between 5 and 10% of patients with values between 200 and 400 pg/mL may experience neuropsychiatric and hematologic abnormalities due to occult B12 deficiency; less than 1% of patients with values above 400 pg/mL will have symptoms. Blood BLOOD SPECIMEN / Unknown [facility] / Unknown 07/02/2025 1:31 PM CDT 07/02/2025 1:32 PM CDT Gisell Stephenson MD CHEMISTRY Final Re sult Performing Organization Address [facility] de Phone Number [facility] [address] [address], * (ABNORMAL) BASIC METABOLIC PANEL (07/02/2025 1:31 PM CDT) Only the most recent of3 resultswithin the time period is included. Pathologist [facility] SODIUM 134(L) 135 - 146 mmol/L 07/03/2025 4:47 AM CDT [facility] POTASSIUM 4.0 3.5 - 5.3 mmol/L 07/03/2025 4:47 AM CDT [facility] CARBON DIOXIDE 28 20 - 32 mmol/L 07/03/2025 4:47 AM CDT [facility] GLUCOSE 101(H) 65 - 99 mg/dL 07/03/2025 4:47 AM CDT [facility] Comment: Fasting reference interval For someone without known diabetes, a glucose value between 100 and 125 mg/dL is consistent with prediabetes and should be confirmed with a follow-up test. CALCIUM 8.6 8.6 - 10.4 mg/dL 07/03/2025 4:47 AM CDT [facility] CREATININE 0.68 0.60 - 1.00 mg/dL 07/03/2025 4:47 AM CDT [facility] BUN/CREATININE RATIO SEE NOTE: 6 - 22 (calc) 07/03/2025 4:47 AM CDT [facility] Comment: Not Reported: BUN and Creatinine are within reference range. EGFR 92 > OR = 60 mL/min/1. 73m2 07/03/2025 4:47 AM CDT [facility] UREA NITROGEN (BUN) 9 7 - 25 mg/dL 07/03/2025 4:47 AM CDT [facility] ELECTROLYTE BALANCE 7 7 - 17 mmol/L (calc) 07/03/2025 4:47 AM CDT [facility] CHLORIDE 99 98 - 110 mmol/L 07/03/2025 4:47 AM CDT [facility] Blood BLOOD SPECIMEN / Unknown [facility] / Unknown 07/02/2025 1:31 PM CDT 07/02/2025 1:32 PM CDT Gisell Stephenson MD CHEMISTRY Final Re sult [facility] [address] [place] [address], * (ABNORMAL) HEMOGLOBIN (06/28/2025 7:59 AM CDT) Only the most recent of6 resultswithin the time period is included. HEMOGLOBIN 7.6(L) 12.0 - 16.0 g/dL 06/28/2025 8:28 AM CDT [facility] MCV 88 80 - 100 fL 06/28/2025 8:28 AM CDT [facility] Blood BLOOD SPECIMEN / Unknown Venipuncture / Unknown 06/28/2025 7:59 AM CDT 06/28/2025 8:21 AM CDT Myrna MURRIETA HEMATOLOGY Final Result [facility] SENDOUT INTERNAL ZIP [id number] [place] [phone] * TRANSFUSE RBC (NURSE COMMUNICATION ORDER) (06/27/2025 8:05 PM CDT) Blood BLOOD SPECIMEN / Unknown Myrna MURRIETA NURSING BLOOD BANK Fin al Result * RBC W/O TYPE & SCREEN (06/27/2025 2:12 PM CDT) Only the most recent of2 resultswithin the time period is included. QUANTITY 1 06/27/2025 2:12 PM CDT [facility] B[facility]OD B[facility] Blood BLOOD SPECIMEN / Unknown 06/27/2025 2:07 PM CDT Myrna MURRIETA BLOOD BANK Final Result Performing Organization Address City/[facility]/ZIP Co de Phone Number [facility] BLOOD BANK [address] [place] [phone] * RED BLOOD CELLS EA UNIT (06/27/2025 2:11 PM CDT) Only the most recent of4 resultswithin the time period is included. CROSSMATCH Compatible Compatible [facility] BLOOD BANK PRODUCT BLOOD TYPE A Rh Positive [facility] BLOOD B[facility] PRODUCT ID NUMBER [id number] [facility] BLOOD BANK PRODUCT STATUS Transfused [facility] PRODUCT DESCRIPTION RBC -1 LR [facility] BLOOD BANK PRODUCT CODE [id number] [facility] B[facility] ISSUE DATE/TIME 06/27/25 17:26 [facility] Myrna MURRIETA BLOOD BANK Edited Result - Final [facility] BLOOD BANK [address] [place] [phone] * HEMOGLOBIN A1C (06/27/2025 10:25 AM CDT) [facility] HEMOGLOBIN A1C SCREENING 5.3 <=6.4 % 06/27/2025 1:16 PM CDT [facility] Blood BLOOD SPECIMEN / Unknown Venipuncture / Unknown 06/27/2025 10:25 AM CDT 06/27/2025 10:52 AM CDT [facility] - 06/27/2025 1:16 PM CDT (<5.7%) Normal (5.7% to 6.4%) Indicates prediabetes (>=6.5%) Confirms diabetes Falsely low levels may be seen with: Recent Transfusion, Recent Significant Blood Loss, Hemolytic Diseases, or Falsely elevated levels may be seen with: Untreated Anemias, Splenectomy us Sandrine Gomez MD CHEMISTRY Final Result Performing Organization Address [facility]/ZIP Co de Phone Number [facility] SENDOUT INTERNAL ZIP [phone] [place] [phone] * MAGNESIUM (06/27/2025 10:25 AM CDT) [facility] MAGNESIUM 1.9 1.6 - 2.4 mg/dL 06/27/2025 11:13 AM CDT [facility] Blood BLOOD SPECIMEN / Unknown Venipuncture / Unknown 06/27/2025 10:25 AM CDT 06/27/2025 10:52 AM CDT us Corbin Sousa MD CHEMISTRY Final Res ult [facility] SENDOUT INTERNAL ZIP [phone] [place] [address] * (ABNORMAL) CBC WITH AUTO DIFFERENTIAL (06/26/2025 4:30 PM CDT) [facility] WHITE BLOOD COUNT 8.7 4.5 - 11.0 thou/cu mm 06/26/2025 4:41 PM CDT [facility] RED BLOOD COUNT 3.11(L) 4.00 - 5.20 mil/cu mm 06/26/2025 4:41 PM [facility] HEMOGLOBIN 9.5(L) 12.0 - 16.0 g/dL 06/26/2025 4:41 PM [facility] HEMATOCRIT 27.4(L) 33.0 - 51.0 % 06/26/2025 4:41 PM [facility] MCV 88 80 - 100 fL 06/26/2025 4:41 PM [facility] MCH 30.5 26.0 - 34.0 pg 06/26/2025 4:41 PM [facility] MCHC 34.7 32.0 - 36.0 g/dL 06/26/2025 4:41 PM [facility] RDW 13.2 11.5 - 15.5 % 06/26/2025 4:41 PM [facility] PLATELET COUNT 177 140 - 440 thou/cu mm 06/26/2025 4:41 PM [facility] MPV 9.2 6.5 - 11.0 fL 06/26/2025 4:41 PM [facility] NRBC 0.0 % 06/26/2025 4:41 PM [facility] ABS NRBC 0.0 thou /cu mm 06/26/2025 4:41 PM [facility] % NEUT 81.8 % 06/26/2025 4:41 PM [facility] % LYMPH 5.7 % 06/26/2025 4:41 PM [facility] % MONO 11.3 % 06/26/2025 4:41 PM [facility] % EOS 0.0 % 06/26/2025 4:41 PM [facility] % BASO 0.3 % 06/26/2025 4:41 PM [facility] % IMMATURE GRAN (METAS,MYELOS,CO OS) 0.9 % 06/26/2025 4:41 PM [facility] ABSOLUTE NEUTROPHILS 7.1(H) 1.7 - 7.0 thou/cu mm 06/26/2025 4:41 PM [facility] ABSOLUTE LYMPHOCYTES 0.5(L) 0.9 - 2.9 thou/cu mm 06/26/2025 4:41 PM T [facility] ABSOLUTE MONOCYTES 1.0(H) <0.9 thou/cu mm 06/26/2025 4:41 PM CDT [facility] ABSOLUTE EOSINOPHILS 0.0 <0.5 thou/cu mm 06/26/2025 4:41 PM CDT [facility] ABSOLUTE BASOPHILS 0.0 <0.3 thou/cu mm 06/26/2025 4:41 PM CDT [facility] ABSOLUTE IMMATURE GRANULOCYTES(MET ,MYELOS,PROS) 0.1 <0.3 thou/cu mm 06/26/2025 4:41 PM CDT [facility] Blood BLOOD SPECIMEN / Unknown Non-Lab Venipuncture / Unknown 06/26/2025 4:30 PM CDT 06/26/2025 4:38 PM CDT us Sandra Lc Hock CELL FEED DEPARTMENT SUPERVISOR HEMATOLOGY Final Resul t [facility] SENDOUT INTERNAL ZIP [id number] [place] [address] * XR C-ARM EQUAL OR GREATER 2 HR (06/26/2025 3:17 PM CDT) Anatomical Region Laterality Modality Computed Radiogr aphy 06/26/2025 3:17 PM CDT Narrative 06/26/2025 5:12 PM CDT For Patients: As a result of the Cures Act, medical imaging exams and procedure reports are released immediately into your electronic medical record. You may view this report before your referring provider. If you have questions, please contact your health care provider. EXAM: XR C-ARM EQUAL OR GREATER 2 HR LOCATION: [facility] DATE: 06/26/2025 INDICATION: free text)->Intraoperative COMPARISON: None. TECHNIQUE: Intraoperative fluoroscopy performed during the patient's procedure. RADIATION DOSE: DAP 18.50 FINDINGS: 12 fluoroscopic images. 34.9 seconds of fluoroscopic time. Hardware fixation changes lumbar spine and S1/iliac wings dorsally with anterior fixation lower lumbar level. Correlate with real-time imaging. Procedure Note Zac Sosa MD - 06/26/2025 For Patients: As a result of the Cures Act, medical imagingexams and procedure reports are released immediately into your electronicmedical record. You may view this report before your referring provider.If you have questions, please contact your health care provider. EXAM: XR C-ARM EQUAL OR GREATER 2 HR LOCATION: [facility] DATE: 06/26/2025 INDICATION: free text)->Intraoperative COMPARISON: None. TECHNIQUE: Intraoperative fluoroscopy performed during the patient'sprocedure. RADIATION DOSE: DAP 18.50 FINDINGS: 12 fluoroscopic images. 34.9 seconds of fluoroscopic time.Hardware fixation changes lumbar spine and S1/iliac wings dorsally withanterior fixation lower lumbar level. Correlate with real-time imaging. us Иван Elkins MD FLUOROSCOPY Final Result * XR O-ARM FLUORO 31-120 MINUTES (06/26/2025 2:30 PM CDT) Anatomical Region Laterality Modality Computed Radiogr aphy 06/26/2025 2:30 PM CDT Narrative 06/27/2025 10:10 AM CDT For Patients: As a result of the Cures Act, medical imaging exams and procedure reports are released immediately into your electronic medical record. You may view this report before your referring provider. If you have questions, please contact your health care provider. EXAM: XR O-ARM FLUORO 31-120 MINUTES LOCATION: [facility] DATE: 06/26/2025 INDICATION: free text)->Intraoperative COMPARISON: Same day lumbar spine radiographs. TECHNIQUE: Intraoperative fluoroscopy and cone beam CT performed during the patient's procedure. RADIATION DOSE: JOANN 36.67 mGy FINDINGS: Intraoperative fluoroscopic images and cone beam CT for surgical localization of spinal fusion revision. Small amount of retroperitoneal gas, not entirely unexpected in this intraoperative setting. Please refer to operative notes for additional details. Procedure Note Torres Weiss MD - 06/27/2025 For Patients: As a result of the Cures Act, medical imagingexams and procedure reports are released immediately into your electronicmedical record. You may view this report before your referring provider.If you have questions, please contact your health care provider. EXAM: XR O-ARM FLUORO 31-120 MINUTES LOCATION: [facility] DATE: 06/26/2025 INDICATION: free text)->Intraoperative COMPARISON: Same day lumbar spine radiographs. TECHNIQUE: Intraoperative fluoroscopy and cone beam CT performed duringthe patient's procedure. RADIATION DOSE: JOANN 36.67 mGy FINDINGS: Intraoperative fluoroscopic images and cone beam CT for surgicallocalization of spinal fusion revision. Small amount of retroperitonealgas, not entirely unexpected in this intraoperative setting. Please referto operative notes for additional details. Иван Elkins MD FLUOROSCOPY Final Result * TRANSFUSE RBC (NURSE COMMUNICATION ORDER) (06/26/2025 11:34 AM CDT) Blood BLOOD SPECIMEN / Unknown Yessi Lawrence CELL FEED DEPARTMENT SUPERVISOR NURSING BLOOD BANK Final R esult * [facility] CATH INFUSION PR10, [facility] TUBING PR1, [facility]G TUBING PR20, [facility] DRSG PR1, H[facility] DRSG PR5, HCHG STATLOCK PR1, HCHG KIT PR5 (06/26/2025 10:39 AM CDT) Narrative Humble Mcdonald MD - 06/26/2025 10:39 AM CDT Humble Mcdonald MD 06/26/2025 10:40 AM Arterial Line Patient location during procedure: OR Start time: 06/26/2025 8:00 AM End time: 06/26/2025 8:05 AM Indications: lab sampling and monitoring Staffing Preanesthetic Checklist Completed: patient identified, risks and benefits discussed, consent obtained and timeout performed Arterial Line Patient position: supine. Comment:. Laterality: left Site: brachial Ultrasound guidance: live ultrasound and sterile gel and probe cover used in ultrasound-guided central venous catheter insertion. Ultrasound Indication: unable to palpate Needle localization (ultrasound): selected vessel patent, potential access sites evaluated and needle visualized entering selected vessel. Securement/dressing: Biopatch applied, dressing applied, STATLOCK stabilization placed. Comment: Supplemental O2: supplemental oxygen. Comment:. 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 Comment:. Catheter length: 12 cm. Comment: Events: no complications. Result [facility] Humble Mcdonald MD ANESTHESIA PX NOTE ORDERABLES Fi nal Result * (ABNORMAL) Arterial Blood Gas (06/26/2025 10:28 AM CDT) PH, ARTERIAL 7.35 7.35 - 7.45 06/26/2025 10:37 AM CDT [facility] PCO2, ARTERIAL 46(H) 32 - 45 mmHg 06/26/2025 10:37 AM CDT [facility] PO2, ARTERIAL 174(H) 83 - 108 mmHg 06/26/2025 10:37 AM CDT [facility] HCO3, ARTERIAL 25 21 - 28 mmol/L 06/26/2025 10:37 AM CDT [facility] BASE EXCESS, ARTERIAL -0.6 -2.0 - 3.0 06/26/2025 10:37 AM CDT [facility] O2 SATURATION, ARTERIAL 99(H) 94 - 98 % 06/26/2025 10:37 AM CDT [facility] INSPIRED O2 06/26/2025 10:37 AM T [facility] Comment:Unit of Measure: Lit ers (L) if <=20; Percent (%) if >20 PATIENT TEMPERATURE 37.0 Degrees C 06/26/2025 10:37 AM CDT [facility] Blood ARTERIAL BLOOD SPECIMEN / Unknown Arterial / Unknown 06/26/2025 10:28 AM CDT 06/26/2025 10:34 AM CDT Yessi Lawrence CELL FEED DEPARTMENT SUPERVISOR CHEMISTRY Final Resu lt [facility] SENDOUT INTERNAL ZIP [id number] [place] [phone] * XR SPINE LUMBAR 2 VIEWS PORTABLE (06/26/2025 10:01 AM CDT) Anatomical Region Laterality Modality Spine, LUMBAR SPINE Computed Rad iography 06/26/2025 10:0 1 AM CDT Impressions 06/26/2025 11:00 AM CDT Presumed small 12th ribs. Posterior patrick and screw fixation hardware from L2 down to L5 with bilateral pelvic screws. Anterior plate and screw fixation hardware at L4-L5. New surgical screw and disc spacer through L5-S1 vertebral body. Intervertebral disc spacers at multiple levels. Again seen are fractures through the posterior Taylor rods bilaterally, also present on 04/03/2025. No metallic foreign object is seen on the provided views. Results discussed with the operating team at 10:40 AM on 06/26/2025. Narrative 06/26/2025 11:00 AM CDT For Patients: As a result of the Cures Act, medical imaging exams and procedure reports are released immediately into your electronic medical record. You may view this report before your referring provider. If you have questions, please contact your health care provider. EXAM: XR SPINE LUMBAR 2 VIEWS PORTABLE LOCATION: [facility] DATE: 06/26/2025 INDICATION: Pain. COMPARISON: Lumbar spine MR 06/14/2025. Procedure Note Lm Scott MD - 06/26/2025 For Patients: As a result of the Cures Act, medical imagingexams and procedure reports are released immediately into your electronicmedical record. You may view this report before your referring provider.If you have questions, please contact your health care provider. EXAM: XR SPINE LUMBAR 2 VIEWS PORTABLE LOCATION: [facility] DATE: 06/26/2025 INDICATION: Pain. COMPARISON: Lumbar spine MR 06/14/2025. IMPRESSION: Presumed small 12th ribs. Posterior patrick and screw fixation hardware fromL2 down to L5 with bilateral pelvic screws. Anterior plate and screwfixation hardware at L4- L5. New surgical screw and disc spacer throughL5-S1 vertebral body. Intervertebral disc spacers at multiple levels.Again seen are fractures through the posterior Taylor rodsbilaterally, also present on 04/03/2025. No metallic foreign object is seen on the provided views. Results discussed with the operating team at 10:40 AM on 06/26/2025. Иван Elkins MD GENERAL IMAGING Final Result * XR SPINE 1 VIEW PORTABLE (06/26/2025 9:41 AM CDT) Anatomical Region Laterality Modality Spine, CERVICAL SPINE, THORACIC SPINE, LUMBAR SP INE Computed Radiography 06/26/2025 9:41 AM CDT Impressions 06/26/2025 2:34 PM CDT Single lateral view of the lumbar spine obtained for the purposes of intraoperative localization. There is a surgical sponge anterior to the anterior plate and screw fixation hardware at L4-5. Fractured posterior interconnecting rods. Narrative 06/26/2025 2:34 PM CDT For Patients: As a result of the Cures Act, medical imaging exams and procedure reports are released immediately into your electronic medical record. You may view this report before your referring provider. If you have questions, please contact your health care provider. EXAM: XR SPINE 1 VIEW PORTABLE LOCATION: [facility] DATE: 06/26/2025 INDICATION: Pain COMPARISON: Lumbar spine radiograph 06/26/2025. Procedure Note Adán Abbott MD - 06/26/2025 For Patients: As a result of the Cures Act, medical imagingexams and procedure reports are released immediately into your electronicmedical record. You may view this report before your referring provider.If you have questions, please contact your health care provider. EXAM: XR SPINE 1 VIEW PORTABLE LOCATION: [facility] DATE: 06/26/2025 INDICATION: Pain COMPARISON: Lumbar spine radiograph 06/26/2025. IMPRESSION: Single lateral view of the lumbar spine obtained for the purposes ofintraoperative localization. There is a surgical sponge anterior to theanterior plate and screw fixation hardware at L4-5. Fractured posteriorinterconnecting rods. Иван Elkins MD GENERAL IMAGING Final Result * TRANSFUSE RBC (NURSE COMMUNICATION ORDER) (06/26/2025 9:31 AM CDT) Blood BLOOD SPECIMEN / Unknown Yessi Lawrence CRNA NURSING BLOOD BANK Final R esult * ETT (06/26/2025 8:24 AM CDT) Narrative Marivel Beverly CRNA Student - 06/26/2025 8:24 AM CDT Marivel Beverly CRNA Student 06/26/2025 8:25 AM Procedure: ETT Patient location during procedure: OR ETT Properties Mask Ventilation: easy and oral airway Final Technique: video laryngoscopy Type: straight Location: oral Cuffed: yes Tube Size: 7.0 mm Stylet: yes Laryngoscope Blade: Glidescope Blade Size: 3 Cormack-Lehane Grade View: 1 Insertion Attempts: 1 Placement Verification: auscultation, end tidal CO2 and symmetrical chest wall movement Assessment: pharynx clear, atraumatic and dentition unchanged Secured at: 21 Measured From: lips Difficulty: 0 (not difficult) Humble Mcdonald MD ANESTHESIA PX NOTE ORDERABLES Fi nal Result * GLUCOSE METER (06/26/2025 6:29 AM CDT) GLUCOSE METER 84 65 - 100 mg/dL 06/26/2025 6:58 AM CDT [facility] Blood BLOOD SPECIMEN / Unknown 06/26/2025 6:29 AM CDT 06/26/2025 6:58 AM CDT Иван Elkins MD CHEMISTRY Final Result Performing Organization Address City/[facility]/ZIP Co de Phone Number [facility] SENDOUT INTERNAL ZIP [phone] [place] [phone] * Type and Screen (06/26/2025 6:26 AM CDT) ABORH A Rh Positive 06/26/2025 7:32 AM CDT [facility] BLOOD BANK ANTIBODY SCREEN Negative Negative 06/26/2025 7:32 AM CDT [facility] BLOOD BANK SPECIMEN EXPIRATION DATE/TIME 06/29/25 23:59 06/26/2025 7:32 AM CDT [facility] BLOOD BANK Blood BLOOD SPECIMEN / Unknown Non-Lab Venipuncture / Unknown 06/26/2025 6:26 AM CDT 06/26/2025 6:30 AM CDT us Иван Elkins MD BLOOD BANK Final Result [facility] BLOOD BANK [address] [place] [phone] * SCAN-CARDIAC STRIP (06/26/2025 12:00 AM CDT) Narrative 06/26/2025 12:00 AM CDT Ordered by an unspecified provider. Other Clinical Staff OTHER Final Resul t * EKG 12 LEAD (06/18/2025 12:00 AM CDT) Gisell Stephenson MD EKG ORD Final Re sult * MR SPINE THORACIC WO (06/14/2025 3:13 PM CDT) Anatomical Region Laterality Modality Spine, THORACIC SPINE Magnetic R esonance 06/14/2025 6:45 PM CDT Impressions 06/14/2025 6:45 PM CDT Unremarkable MRI of the thoracic spine. Dictated by Tevin Beck MD @ 06/14/2025 6:45:41 PM (Electronically Signed) Narrative 06/14/2025 6:45 PM CDT For Patients: As a result of the Cures Act, medical imaging exams and procedure reports are released immediately into your electronic medical record. You may view this report before your referring provider. If you have questions, please contact your health care provider. INDICATION: Mid back pain. TECHNIQUE: Noncontrast sagittal T1, T2, STIR and axial GRE sequences are provided. No comparisons. FINDINGS: The overall stature, alignment and intrinsic marrow signal of the thoracic spine is within normal limits. Thoracic cord is normal. No suspicious disc bulges or protrusions. No suspicious central canal or foraminal narrowing. Procedure Note Callum Beck, DO - 06/14/2025 For Patients: As a result of the Cures Act, medical imagingexams and procedure reports are released immediately into your electronicmedical record. You may view this report before your referring provider.If you have questions, please contact your health care provider. INDICATION: Mid back pain. TECHNIQUE: Noncontrast sagittal T1, T2, STIR and axial GRE sequences are provided. Nocomparisons. FINDINGS: The overall stature, alignment and intrinsic marrow signal of the thoracicspine is within normal limits. Thoracic cord is normal. No suspicious discbulges or protrusions. No suspicious central canal or foraminalnarrowing. IMPRESSION: Unremarkable MRI of the thoracic spine. Dictated by Tevin Beck MD @ 06/14/2025 6:45:41 PM (Electronically Signed) us Иван Elkins MD MR Final Result * MR SPINE LUMBAR WO (06/14/2025 3:12 PM CDT) Anatomical Region Laterality Modality Spine, LUMBAR SPINE Magnetic Res onance 06/14/2025 6:52 PM CDT Impressions 06/14/2025 6:52 PM CDT 1. Partial sacralization of the L5 segment with vestigial T12 ribs. Plain film correlation recommended prior to any surgical intervention. 2. Extensive fusion extending from L2-5 with bilateral iliac crests fusion hardware. 3. Interval development of severe central canal and moderate to severe left foraminal and moderate right foraminal narrowing at L1-2. Dictated by Tevin Beck MD @ 06/14/2025 6:52:07 PM (Electronically Signed) Narrative 06/14/2025 6:52 PM CDT For Patients: As a result of the Cures Act, medical imaging exams and procedure reports are released immediately into your electronic medical record. You may view this report before your referring provider. If you have questions, please contact your health care provider. INDICATION: Low back pain. History of spinal fusion. TECHNIQUE: Noncontrast MRI of the lumbar spine was performed in the usual fashion and compared to prior study from May 13, 2014. FINDINGS: Partial sacralization of the L5 segment. Plain film correlation recommended prior to any surgical intervention. Vestigial T12 ribs. Since the prior study, there has been interval extension of the fusion and ever canal extending from L2-5 with fusion hardware extending into the iliac crests bilaterally. There has been interval development of advanced degenerative marrow signal changes and endplate erosion at the L1-2 level. Interbody grafts at L2-3, L3-4, L4-5. Conus appears within normal limits. T12-L1: Unremarkable. L1-2: Interval development of circumferential disk bulge and moderate facet arthropathy resulting in severe central canal narrowing with worsening moderate to severe left and moderate right foraminal narrowing. L2-3: Evidence of partial left facetectomy. Central canal and neural foramina appear patent. L3-4: Grossly the central canal and neural foramina appear patent. Evidence of prior laminectomy. L4-5: Central canal and neural foramina are patent. Evidence of laminectomy. L5-S1: Central canal and neural foramina are patent. Procedure Note Callum Beck, - 06/14/2025 For Patients: As a result of the Century Cures Act, medical imagingexams and procedure reports are released immediately into your electronicmedical record. You may view this report before your referring provider.If you have questions, please contact your health care provider. INDICATION: Low back pain. History of spinal fusion. TECHNIQUE: Noncontrast MRI of the lumbar spine was performed in the usual fashion andcompared to prior study from May 13, 2014. FINDINGS: Partial sacralization of the L5 segment. Plain film correlationrecommended prior to any surgical intervention. Vestigial T12 ribs. Sincethe prior study, there has been interval extension of the fusion and evercanal extending from L2-5 with fusion hardware extending into the iliaccrests bilaterally. There has been interval development of advanceddegenerative marrow signal changes and endplate erosion at the L1-2 level.Interbody grafts at L2-3, L3-4, L4-5. Conus appears within normallimits. T12-L1: Unremarkable. L1-2: Interval development of circumferential disk bulge and moderatefacet arthropathy resulting in severe central canal narrowing withworsening moderate to severe left and moderate right foraminalnarrowing. L2-3: Evidence of partial left facetectomy. Central canal and neuralforamina appear patent. L3-4: Grossly the central canal and neural foramina appear patent.Evidence of prior laminectomy. L4-5: Central canal and neural foramina are patent. Evidence oflaminectomy. L5-S1: Central canal and neural foramina are patent. IMPRESSION: 1. Partial sacralization of the L5 segment with vestigial T12 ribs. Plainfilm correlation recommended prior to any surgical intervention. 2. Extensive fusion extending from L2-5 with bilateral iliac crests fusionhardware. 3. Interval development of severe central canal and moderate to severeleft foraminal and moderate right foraminal narrowing at L1-2. Dictated by Tevin Beck MD @ 06/14/2025 6:52:07 PM (Electronically Signed) us Иван Elkins MD MR Final Result * SCAN-OPERATIVE/PROCEDURE REPORT (06/12/2025 12:00 AM CDT) us Scanner OTHER Final Result * (ABNORMAL) XR DXA BONE DENSITY 2 SITES AXIAL (05/05/2025 11:10 AM CDT) Anatomical Region Laterality Modality Spine, HIPS, HIPL, HIPR Other Impressions 05/07/2025 4:27 PM CDT Osteopenia. RECOMMENDATIONS: The National Osteoporosis Foundation recommends pharmacologic treatment for patients with T-scores of -2.5 or less, patients with prior history of fragility fractures, or patients with 10-year probability of greater than 3% at hips or greater than 20% of suffering major osteoporotic fractures. Recommend continued optimization of calcium and vitamin D intake through dietary means and/or supplementation and regular exercise. Repeat scan recommended in 3-5 years. Norma Epps PA-C [facility] 05/07/2025 Narrative 05/07/2025 4:27 PM CDT For Patients: Results are automatically released to your [facility] account once available, in compliance with federal regulations. This means that you may see your results before your provider has had a chance to review them. Please allow 2-3 business days for your provider to comment on the results. XR DXA Bone Mineral Density (BMD) EXAM LOCATION: [address] [address] PATIENT NAME: Luz Craig DATE OF : 1950 EXAM DATE: 05/05/2025 REQUESTING PROVIDER: Иван Elkins MD GENDER AT : female HEIGHT: 5' 8.75 (08/15/2024) WEIGHT: 196 lb 12.8 oz (08/15/2024) MENOPAUSAL STATUS: Postmenopausal RACE/ETHNICITY: White RISK FACTORS: Smoking (prior) and White Race CURRENT MEDICATION FOR BONE LOSS: NONE INDICATION: Follow-up of existing osteopenia COMPARISON DATE(S): 2016 DXA scans are compared to prior studies for a patient only when the two (or more) studies were performed on the same scanner. It is not possible to compare data generated on one scanner to data from another because there are not standards in DXA equipment. This applies even if the two scanners are made by the same medical clinic manager. PROCEDURE: Dual-energy x-ray absorptiometry performed with routine technique. Reporting is completed in the form of a T-score. The T-score represents the standard deviation from peak bone mass based on young healthy adult. A Z-score is used for diagnosis in premenopausal women, and for men under the age of 50. FINDINGS: RESULTS FEMUR Left femoral neck BMD: 0.972 g/cm2 T-Score: - 0.5 Z-Score: + 0.8 Change from prior in 2017: Increase 11.7%. Right femoral neck BMD: 0.840 g/cm2 T-Score: - 1.4 Z-Score: - 0.1 Change from prior in 2017: Increase 0.4%. Left hip BMD: 0.924 g/cm2 T-Score: - 0.7 Z-Score: + 0.4 Change from prior in 2017: Increase 1.8%. Right hip BMD: 0.846 g/cm2 T-Score: - 1.3 Z-Score: - 0.2 Change from prior in 2017: Decrease 0.5%. RESULT FOREARM Left Forearm distal radius BMD: 0.700 g/cm2 T-Score: + 0.4 Z-Score: + 2.5 Change from prior in 2017: Increase 5.6%. WHO criteria: Normal: T-score at or above -1 SD Osteopenia: T-score between -1.1 and -2.4 SD Osteoporosis: T-score at or below -2.5 SD FRAX RISK CALCULATION (USED FOR OSTEOPENIA ONLY): 10-year probability of major osteoporotic fracture: 10%. 10-year probability of hip fracture: 1.5%. us Иван Elkins MD DEXA Final Result * SCAN-MRI INTERPRETATION (04/17/2025 12:00 AM CDT) Anatomical Region Laterality Modality Other us Scanner OTHER Final Result * XR MAMMO HANNAH BILAT SCREEN (12/18/2024 12:00 AM 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) Anatomical Region Laterality Modality BREASTS, Breast Left, Breast Right Bilateral Mammography us Gisell Stephenson MD MAMMO Final Re sult * (ABNORMAL) LIPID PANEL W REFLEX MEASURED LDL (08/15/2024 12:36 PM CDT) [facility] CHOLESTEROL, TOTAL 223(H) <200 mg/dL [facility] HDL CHOLESTEROL 81 > OR = 50 mg/dL [facility] TRIGLYCERIDES 123 <150 mg/dL [facility] LDL-CHOLESTEROL 119(H) mg/dL (calc) [facility] Comment: Reference range: <100 Desirable range <100 mg/dL for primary prevention; <70 mg/dL for patients with CHD or diabetic patients with > or = 2 CHD risk factors. LDL-C is now calculated using the Venkata calculation, which is a validated novel method providing better accuracy than the Friedewald equation in the estimation of LDL-C. Valdemar SS et al. BASIA. 2013;310(19): 2973-2311 (http://education.Make It Work/faq/DKJ548) CHOL/HDLC RATIO 2.8 <5.0 (calc) [facility] NON HDL CHOLESTEROL 142(H) <130 mg/dL (calc) [facility] Comment: For patients with diabetes plus 1 major ASCVD risk factor, treating to a non-HDL-C goal of <100 mg/dL (LDL-C of <70 mg/dL) is considered a therapeutic option. Blood BLOOD SPECIMEN / Unknown 08/15/2024 12:36 PM CDT 08/15/2024 12:37 PM CDT Narrative [facility] - 08/16/2024 6:08 AM CDT FASTING:NO FASTING: NO Gisell Stephenson MD CHEMISTRY Final Re sult [facility] [address] [place] [address], [facility] [address] [place] [address] * COLONOSCOPY (12/14/2022 8:42 AM 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) 12/14/2022 8:42 AM 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 Narrative Transcriptions Valdemar Perez MD - 12/14/2022 9:47 AM CST Patient Name: Luz Craig Procedure Date: 12/14/2022 Gender: Female Date of : 1950 Admit Type: Outpatient Procedure: Colonoscopy Proceduralist: Valdemar Perez MD , Meggan Galvez, JAY (Nurse), Ivonne Jean (Nurse) Referring MD: Gisell Stephenson Indications/Pre-Op Diagnosis: Screening for colorectal malignant neoplasm, Last colonoscopy: November 2011, Incidental diarrhea noted Medications: Fentanyl 100 micrograms IV, Midazolam 3 mgIV, The level of sedation administered wasmoderate Procedure Description: The patient had risks, benefits and alternatives explained to andgave informed consent. The patient had a stable cardiopulmonary status and judged an adequate candidate for conscious sedation. The endoscope PCF-H190L [id number] was passed through the anus andadvanced to the terminal ileum. The colonoscopy was performed withoutdifficulty. The patient tolerated the procedure well. The quality of the bowel preparation was good. The terminal ileum, ileocecal valve,appendiceal orifice, and rectum were photographed. Complications: No immediate complications. Estimated Blood Loss & Specimen: Estimated blood loss: none. Specimen collected - Yes and sent to Laboratory Findings: The perianal and digital rectal examinations were normal. The terminal ileum appeared normal. A 2 mm polyp was found in the rectum. The polyp was sessile. Thepolyp was removed with a cold biopsy forceps. Resection and retrieval were complete. The exam was otherwise without abnormality. Biopsies for histology were taken with a cold forceps from the entire colon for evaluation of microscopic colitis. Impressions/Post-Op Diagnosis: - The examined portion of the ileum was normal. - One 2 mm polyp in the rectum, removed with a cold biopsy forceps. Resected and retrieved. - The examination was otherwise normal. - Biopsies were taken with a cold forceps from the entire colon for evaluation of microscopic colitis. Recommendation: - Patient has a contact number available for emergencies. The signsand symptoms of potential delayed complications were discussed with the patient. Return to normal activities tomorrow. Written discharge instructions were provided to the patient. - Resume previous diet. - Continue present medications. - Await pathology results. - Repeat colonoscopy is recommended. The colonoscopy date will be determined after pathology results from today's exam become available for review. Moderate Sedation: A time out was performed before the procedure. Moderate (conscious) sedation was administered by the endoscopy nurse and supervised bythe endoscopist. The following parameters were monitored: oxygensaturation, heart rate, blood pressure, EKG, CO2, respiratory rate, adequacy of pulmonary ventilation and reponse to care. Please refer to the patient's medical record flowsheets and nursing notes for moderate sedation details. Total physician intraservice time was 16 minutes. Valdemar Perez MD 12/14/2022 9:47:46 AM This report has been signed electronically. Note Initiated On: 12/14/2022 8:42 AM Procedure Code(s): --- Professional --- 25196, Colonoscopy, flexible; with biopsy, single or multiple Diagnosis Code(s): --- Professional --- Z12.11, Encounter for screening formalignant neoplasm of colon D12.8, Benign neoplasm of rectum CPT copyright 2020 [employer]. All rights reserved. The codes documented in this report are preliminary and upon office support specialist reviewmay be revised to meet current compliance requirements. Scope In: 9:24:14 AM Scope Withdrawal Time 0 hours 9 minutes 6 seconds Scope Out: 9:38:47 AM us Valdemar Perez MD PROCEDURE ORD Final Res ult from Last 3 Months or Most Recently Relevant to Health Maintenance Insurance [facility] MEDICARE ADVANTAGE MR MEDICARE PART A HB ONLY Advance Directives Documents on File Type Date Recorded Patient [place] Expl anation Healthcare Directive 08/15/2024 3:10 PM he alth care directive 08/15/2024 * Full Code (Latest Code Status on File) Date Activated Date Inactivated Comments 06/26/2025 4:40 PM 06/29/2025 2:48 PM Question Answer Comments Code Status Discussion: Other * Full Code Date Activated Date Inactivated Comments 06/26/2025 6:03 AM 06/26/2025 4:40 PM Question Answer Comments Code Status Discussion: Unable to Assess Preferences, Provider to review later * Full Code Date Activated Date Inactivated Comments 09/30/2019 7:14 AM 09/30/2019 2:46 PM Care Teams Dental Ceramist Helper Relationship Specialty [place] [id number] [place] [address] PCP - General Family Practice 12/05/13
--- OUTSIDE RECORDS SUMMARY | 2025-07-07 20:29 | XMS_ITS | Encounter Summary ---
Author Organization [facility] Address [address] [place] [address]. [place] [address] Care Team Providers Care [employer] Art Teacher Name Role Phone Gisell Stephenson MD Primary Care Provider + Encounter Details Date Type Department Care Team (Late st Contact Info) Description 10/27/2016 [facility] [address] [place] [address] Kanu Woody MD [address] [facility] [address] [place] [address] Pre-operative laboratory examination (Primary Dx) Social History Tobacco Use Types Packs/Day Years Used Date Smoking Tobacco: Former Smokeless Tobacco: Never Alcohol Use Standard Drinks/Week [...] Results * Methicillin Resistant Staph Aureus PCR (10/27/2016 12:40 PM PRICING MANAGER) Specimen Description [facility] Methicillin Resist/Sens S. aureus PCR Negative MRSA Negative: SA Negative MRSA and Staphylococcus aureus target DNA not detected, presumed negative for MRSA and SA colonization or the number of bacteria present may be below the limit of detection for the assay. FDA approved assay performed using [employer] GeneXpert(R) real-time PCR. NEG [facility] 10/27/2016 12:4 0 PM PRICING MANAGER 10/27/2016 2:33 PM PRICING MANAGER us Kanu Woody MD LAB - MICRO GENERAL ORDER MEGHAN Final Result [facility] [address] [place] [address], [facility] [address] [place] [address], [facility] [phone] documented in this encounter Visit Diagnoses Diagnosis Pre-operative laboratory examination- Primary Pre-procedural laboratory examination documented in this encounter Care Teams [employer] Art Teacher Relationship Specialty Start Date End Date Gisell Stephenson MD [facility] [id number] [place] [id number] PCP - General Family Practice 08/13/14 documented as of this encounter
--- OUTSIDE RECORDS SUMMARY | 2025-07-07 20:29 | XMS_ITS | Clinical Summary ---
Author Organization [facility] Address [address] [place] [id number] Care Team Providers Care Scanning Coordinator Name Role Phone Gisell Stephenson MD Primary Care Provider + Allergies Active Allergy Reactions Criticality Noted Date Comments Blood Transfusion Related (Informational Only) Other (See Comments) High 08/22/2014 Patient has a history of a clinically significant antibody against RBC antigens. A delay in compatible RBCs may occur. External Allergen Needs Reconciliation - See Comment 01/07/2022 Please reconcile the Patient's allergy reported as IDOXURIDINE MORPHINE SULFATE and update accordingly Morphine Itching 10/31/2022 Oxycodone Itching,Other (See Comments) 10/31/2016 Irritable and weird dreams Sulfa Antibiotics Hives,Rash Low 08/13/2014 Bupropion Headache 10/31/2022 Medications Divalproex Sodium (DEPAKOTE ER PO) Take 500 mg by mouth 2 times daily Active divalproex sodium extended-releas e (DEPAKOTE ER) 500 MG 24 hr tablet Take 500 mg by mouth 08/26/2022 Active escitalopram (LEXAPRO) 20 MG tablet TAKE 1 AND 1/2 TABLETS DAILY BY MOUTH 08/26/2022 Active hyoscyamine (LEVSIN) 0.125 MG tablet TAKE 1 TABLET (0.125 MG) BY MOUTH EVERY 4 HOURS IF NEEDED FOR COLIC. 08/26/2022 Active ketoconazole (NIZORAL) 2 % external shampoo WASH TO AFFECTED AREA UNDER BREASTS 2-3 TIMES WEEKLY LATHER AND LET SIT FOR SEVERAL MINUTES BEFORE RINSING 07/29/2022 Active triamcinolone (KENALOG) 0.1 % external cream TO AFFECTED AREA ON BACK TWICE A DAY FOR 2 WEEKS THEN NEEDED FOR FLARES 05/20/2021 Active erythromycin (ROMYCIN) 5 MG/GM ophthalmic ointmentIndicat ions:Dermatocha lasis of both upper eyelids Place into both eyes 3 times daily 7.5 g 1 11/01/2022 Active acetaminophen (TYLENOL) 500 MG tabletIndicatio ns:Dermatochala sis of both upper eyelids Take 1-2 tablets (500-1,000 mg) by mouth every 6 hours as needed for mild pain 20 tablet 11/01/2022 Active Active Problems Problem Noted Date Diagnosed Date Cervical radiculopathy 11/03/2016 Lumbar radiculopathy 08/21/2014 Immunizations Immunization Administration Dates Next Due Influenza Vaccine >6 months,quad, PF 08/23/2014 Social History Tobacco Use Types Packs/Day Years Used Date Smoking Tobacco: Former Cigarettes Q uit: 1985 Smokeless Tobacco: Never Tobacco Cessation:Counseling Given: Not Answered Alcohol Use Standard Drinks/Week Comments No 0 (1 standard drink = 0.6 oz pur e alcohol) Adolescent Education Answer Date Record ed Getting School Help Needed Not on file 08/18 Comments No Sex and Gender Information Value Date Recorded Sex Assigned at Not on file Legal Sex Female 9:39 AM CDT Gender Identity Not on file Sexual Orientation Not on file Last Filed Vital Signs Vital Sign Reading Time Taken Comments Blood Pressure 109/77 11/01/2022 8:45 AM SALES [employer] Pulse 73 11/01/2022 9:25 AM SALES [employer] Temperature 36.1 C (96.9 F) 11/01/2022 9:25 AM SALES [employer] Respiratory Rate 16 11/01/2022 9:25 AM SALES [employer] Oxygen Saturation 97% 11/01/2022 9:25 AM SALES [employer] Inhaled Oxygen Concentration - - Weight 89.4 kg (197 lb) 11/01/2022 5:40 AM SALES [employer] Height 175.3 cm (5' 9) 11/01/2022 5:40 AM SALES [employer] Body Mass Index 29.09 11/01/2022 5:40 AM SALES [employer] Plan of Treatment Health Maintenance Due Date Last Done Comments ADVANCE CARE PLANNING 1952 ANNUAL REVIEW OF HM ORDERS [address] CT COLONOGRAPHY 1952 DEXA 1952 FIT 1952 FLEX SIG 1952 MAMMO SCREENING 1952 sDNA (Cologuard) 1952 COLONOSCOPY 1962 COLORECTAL CANCER SCREENING 1962 HEPATITIS C SCREENING 1970 LIPID 1992 LUNG CANCER SCREENING 2002 ZOSTER VACCINE (2 of 3) 11/18/2015 09/23/2015 FALL RISK ASSESSMENT 2017 DIABETES SCREENING 11/04/2019 11/04/2016, 1 12/04/2014, 10/03/2015, Additional history exists PNEUMOCOCCAL VACCINE 50+ YEARS (3 of 3 - PCV20 or PCV21) 07/26/2023 07/26/2018, 09/23/2015, 07/26/2015 MEDICARE ANNUAL WELLNESS VISIT 08/26/2023 08/26/2022, 08/26/2021, 08/24/2020 COVID-19 VACCINE ( season) 2024 08/26/2022, 02/22/2022, 09/23/2021, Additional history exists PHQ-2 (once per calendar year) 2024 INFLUENZA VACCINE (#1) 2025 , 08/26/2021, 09/24/2020, Additional history exists RSV VACCINE (1 - 1-dose 75+ series) 2027 DTAP/TDAP/TD VACCINE (3 - Td or Tdap) 08/26/2032 08/26/2022, 06/26/2012, 08/27/2002 HPV VACCINE (No Doses Required) Completed MENINGITIS VACCINE Aged Out No longer eligible based on patient's age to complete this topic Medical Devices Implanted Type Area Shingle Inspector Device Identifier Shelf Expiration Date Model / Serial / Lot Graft Bone Foam Pack Vitoss 2.5ml Akita Active Implanted:Qty : 1 on 11/03/2016 by Kanu Woody MD at [facility] Bone/Tissu e/Biologic N/A: Spine Cervical ORTHOVITA 06/23/2018 / / [id number] Graft Bone Foam Pack Vitoss 1.2ml Akita Active Implanted:Qty : 1 on 11/03/2016 by Kanu Woody MD at [facility] Bone/Tissu e/Biologic N/A: Spine Cervical ORTHOVITA 10/26/2017 [id number] / / [id number] Imp Plate Strk Aviator 3 Level Size 48 [id number] Implanted:Qty : 1 on 11/03/2016 by Kanu Woody MD at [facility] Metallic Hardware/A nchor N/A: Spine Cervical [employer] [id number] / / [id number] Imp Scr Strk Aviator Vari Self Tap 4.51o98sk Ely Sh[place]one [id number] Implanted:Qty : 1 on 11/03/2016 by Kanu Woody MD at [facility] Metallic Hardware/A nchor N/A: Spine Cervical [employer] [id number] / / [id number] Imp Scr Strk Aviator Vari Self Drill 4x14mm Blue [id number] Implanted:Qty : 1 on 11/03/2016 by Kanu Woody MD at [facility] Metallic Hardware/A nchor N/A: Spine Cervical [employer] [id number] / / [id number] Imp Scr Strk Aviator Fixed Self Drill 4x14mm Purple [id number] Implanted:Qty : 6 on 11/03/2016 by Kanu Woody MD at [facility] Metallic Hardware/A nchor N/A: Spine Cervical [employer] [id number] / / [id number] Imp Spacer Strk Avs As [id number] 4deg [id number] Implanted:Qty : 2 on 11/03/2016 by Kanu Woody MD at [facility] Metallic Hardware/A nchor N/A: Spine Cervical [employer] [id number] / / [id number] Imp Spacer Strk Avs As [id number] 4deg [id number] Implanted:Qty : 1 on 11/03/2016 by Kanu Woody MD at [facility] Metallic Hardware/A nchor N/A: Spine Cervical [employer] [id number] / / [id number] Graft Bone Foam Pack Vitoss 10ml Bio Active Implanted:Qty : 1 on 08/21/2014 by Kanu Woody MD at [facility] N/A: Spine Lumbar ORTHOVITA 03/26/2015 / / [id number] Graft Bone Crush Canc 15ml [id number] Implanted:Qty : 1 on 08/21/2014 by Kanu Woody MD at [facility] N/A: Spine Lumbar MUSCULOSKELETAL ALEXIS 03/13/2017 [id number] / [id number] 28 / Interbody Fusion Device [id number] Implanted:Qty : 1 on 08/21/2014 by Kanu Woody MD at [facility] N/A: Spine Lumbar [employer] 09/24/2020 [id number] / / [id number] Imp Scr Danek 6.5x45mm Legacy Ti [id number] Implanted:Qty : 2 on 08/21/2014 by Kanu Woody MD at [facility] N/A: Spine Lumbar [employer]-DANEK [id number] / / [id number] Graft Bone Crush Canc 30ml [id number] Implanted:Qty : 1 on 10/01/2015 by Kanu Woody MD at [facility] N/A: Spine Lumbar MUSCULOSKELETAL ALEXIS 12/08/2017 [id number] / [id number] 21 / Plate 4hole 39mm Implanted:Qty : 1 on 10/01/2015 by Kanu Woody MD at [facility] N/A: Spine Lumbar [employer] [id number] / / [id number] 2014 Osteoset Esorbable Bead Kit Fast Cure Implanted:Qty : 1 on 10/01/2015 by Kanu Woody MD at [facility] N/A: Spine Lumbar [employer] 03/26/2022 [id number] / / [id number] Description:Tobramycin powde r 1.2 grams x2 mixed into kit Lot# [id number] Exp 02/11 Lot#[id number] Exp 02/11 Imp Scr Syn Can 4.0x20mm Ft Ss 206.020 Implanted:Qty : 1 on 10/01/2015 by Kanu Woody MD at [facility] N/A: Spine Lumbar SYNTHES-STRATEC 206.020 / / Screw Jeff 6.5 X 25 Mm Implanted:Qty : 1 on 10/01/2015 by Kanu Woody MD at [facility] N/A: Spine Lumbar [employer] [id number] / / [id number] NOV 2014 Screw Jeff 6.5 X 30 Mm Implanted:Qty : 3 on 10/01/2015 by Kanu Woody MD at [facility] N/A: Spine Lumbar [employer] [id number] / / [id number] 2014 Description:Anterior lumbar spine Imp Scr Medt 5.5/6.0mm Solera 8.5x70mm Ma [id number] Implanted:Qty : 2 on 10/01/2015 by Kanu Woody MD at [facility] N/A: Spine Lumbar [employer] [id number] / / [id number] 31NOV 2014 Imp Scr Set Medt Solera Break Off 5.5mm Ti [id number] Implanted:Qty : 3 on 10/01/2015 by Kanu Woody MD at [facility] N/A: Spine Lumbar [employer] [id number] / / [id number] 31NOV 2014 Imp Scr Medt 5.5/6.0mm Solera 6.5x45mm Ma [id number] Implanted:Qty : 1 on 10/01/2015 by Kanu Woody MD at [facility] N/A: Spine Lumbar [employer] [id number] / / [id number] 31NOV 2014 Imp Scr Danek Legacy Breakoff Set 5.5mm Ti [id number] Implanted:Qty : 6 on 10/01/2015 by Kanu Woody MD at [facility] N/A: Spine Lumbar [employer]-DANEK [id number] / / [id number] 2014 Imp Patrick Medt Solera Str 5.6k946ph [facility] [id number] Implanted:Qty : 1 on 10/01/2015 by Kanu Woody MD at [facility] N/A: Spine Lumbar [employer] [id number] / / 10/01/15-0304 Impulse Supllies Implanted:Qty : 1 on 10/01/2015 by Kanu Woody MD at [facility] N/A: Spine Lumbar Hemodynamic Supplies Implanted:Qty : 1 on 10/01/2015 by Kanu Woody MD at [facility] N/A: Spine Lumbar Interbody Spacer 12deg X H=18mmxw=30mm xl=24mm Implanted:Qty : 1 on 10/01/2015 by Kanu Woody MD at [facility] N/A: Spine Lumbar [employer] 04/10/2023 [id number] / / [id number] Graft Allograft Nucell Xlg Nc-1003 Implanted:Qty : 1 on 10/01/2015 by Kanu Woody MD at [facility] N/A: Spine Lumbar [employer] 07/23/2016 NC-1003 / [id number] / Graft Bone Foam Pack Vitoss 10ml Bio Active [id number] Implanted:Qty : 1 on 10/01/2015 by Kanu Woody MD at [facility] N/A: Spine Lumbar ORTHOVITA 06/26/[id number] / / [id number] Explanted Type Area Shingle Inspector Device Identifier Shelf Expiration Date Model / Serial / Lot Imp Scr Danek Legacy Breakoff Set 5.5mm Ti [id number] Implanted:Qty: 6 on 08/21/2014 by Kanu Woody MD at [facility] Explanted:Qty: 6 on 10/01/2015 at [facility] N/A: Spine Lumbar [employer]ANEK [id number] / / [id number] Imp Patrick Danek 5.5x70mm Ti Implanted:Qty: 2 on 08/21/2014 by Kanu Woody MD at [facility] Explanted:Qty: 2 on 10/01/2015 at [facility] N/A: Spine Lumbar [employer]-NICKY [id number] / / [id number] Procedures Procedure Name Priority Date/Time Associated Diagnosis Comments GLUCOSE Routine 11/04/2016 6:13 AM SALES [employer] Post-operative pain from Last 3 Months or Most Recently Relevant to Health Maintenance Results * (ABNORMAL) Glucose (11/04/2016 6:13 AM SALES [employer]) Glucose 128(H) 70 - 99 mg/dL [facility] Blood specimen (specimen) 11/04/2016 6:13 AM SALES [employer] 11/04/2016 6:50 AM SALES [employer] us Kanu Woody MD LAB - BLOOD ORDERABLES Fi nal Result 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 anation Advance Directives and Living Will 08/26/2014 HEALTH CARE POWER OF REGISTERED APPRAISER 02/27/1989 * Full Code (Latest Code Status on File) Date Activated Date Inactivated Comments 11/03/2016 1:50 PM 11/04/2016 9:31 PM * Full Code Date Activated Date Inactivated Comments 10/01/2015 4:47 PM 10/04/2015 6:57 PM * Full Code Date Activated Date Inactivated Comments 08/21/2014 12:18 PM 08/23/2014 3:07 PM Care Teams Scanning Coordinator Relationship Specialty Start Date End Date Gisell Stephenson MD [facility] [id number] [place] [id number] PCP - General Family Practice 08/13/14
[2025-07-07 20:31] VITALS: BP 146/73; PULSE 88; RESP 18; TEMP 36.4; O2SAT 98; BMI 30.7
--- NOTE | 2025-07-07 21:36 | ED.GENADULT ---
HPI - General Adult General Chief complaint: Abdominal Pain Stated complaint: low iron/cramping in stomach Time Seen by Provider: 07/07/25 21:34 History of Present Illness HPI narrative: Patient presents with severe lower right stomach cramps. Patient had back surgery at [facility] . Patient was discharged from hospital on June 29. Patient has reported low hemoglobin since surgery. Patient reports no bowel movement since July 04. 74-year-old woman presenting to the emergency department with sharp and crampy lower abdominal pain. On June 26 had surgery where she had removal of failed hardware and new fusion in the lumbar spine. Was noted to have low hemoglobin since that surgery. Has apparently been ordered for iron replacement and is pending these infusions. She was discharged on the 29 of June and on the 02 of July used a suppository and had a bowel movement (later reported as minimal) but has had no bowel movement since. Sounds like has been taking Benefiber equivalent and docusate. She is not having any difficulty urinating. Has been passing gas. Reportedly did not have any problems with hemoglobin preop. We were able to locate records that show a hemoglobin of 12.5 on 06/18/2025. Next time checked looks to been 06/26/25 which I believe was postop. She reports receiving a transfusion intraoperatively and I believe 1 afterwards. Last hemoglobin checked was 8 on 07/02/2025 with iron studies as well. Does have a history of irritable bowel. She is worried about taking anything that might set off ?the firehose? and associated cramping again. Related Data Home Medications ?Medication ?Instructions ?Recorded ?Confirmed escitalopram oxalate 20 mg tablet 20 mg PO QDAY 08/26/22 07/07/25 divalproex 500 mg tablet,extended 500 mg PO BID 06/28/23 07/07/25 release 24 hr diclofenac sodium 1 % topical gel 2 g topical ONCE PRN 07/22/24 07/07/25 cholecalciferol (vitamin D3) 10 10 mcg PO QDAY 04/03/25 07/07/25 mcg (400 unit) capsule pyridoxine (vitamin B6) 10 mg 10 mg PO QDAY 04/03/25 07/07/25 tablet hydromorphone 2 mg tablet 2 - 4 mg PO Q4H PRN pain 07/07/25 07/07/25 Previous Rx's ?Medication ?Instructions ?Recorded cyclobenzaprine 10 mg tablet 10 mg PO .HS #30 tabs 04/03/25 Allergies Allergy/AdvReac Type Severity Reaction Status Date / Time morphine Allergy severe Verified 07/07/25 20:41 itching bupropion AdvReac ears chirp Verified 07/07/25 20:41 oxycodone AdvReac itching Verified 07/07/25 20:41 Sulfa (Sulfonamide AdvReac hives, Verified 07/07/25 20:41 Antibiotics) itching Review of Systems Status of ROS: Reports: 6 or more systems reviewed and unremarkable except as noted in History and below [facility] Medical History Petit mal epilepsy ?G40.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 - Absence epileptic syndrome, not intractable, without status epilepticus (ICD-10) Right foot drop ?M21.371 - Foot drop, right foot (ICD-10) Plantar fasciitis, bilateral ?M72.2 - Plantar fascial fibromatosis (ICD-10) Irritable bowel syndrome with diarrhea ?K58.0 - Irritable bowel syndrome with diarrhea (ICD-10) TMJ arthritis ?M26.649 - Arthritis of unspecified temporomandibular joint (ICD-10) Hyperlipidemia ?E78.5 - Hyperlipidemia, unspecified (ICD-10) Osteopenia of both thighs ?M85.851 - Other specified disorders of bone density and structure, right thigh (ICD-10) ?M85.852 - Other specified disorders of bone density and structure, left thigh (ICD-10) Sprain of left wrist ?S63.502A - Unspecified sprain of left wrist, initial encounter (ICD-10) Hepatitis ?K75.9 - Inflammatory liver disease, unspecified (ICD-10) Fracture of distal end of radius ?S52.509A - Unspecified fracture of the lower end of unspecified radius, initial encounter for closed fracture (ICD-10) Epilepsy ?G40.909 - Epilepsy, unspecified, not intractable, without status epilepticus (ICD-10) Depression ?F32.A - Depression, unspecified (ICD-10) Seizures ?R56.9 - Unspecified convulsions (ICD-10) Surgical History S/P trigger finger release (05/07/24) ?Z98.890 - Other specified postprocedural states (ICD-10) History of back surgery (10/01/15) ?Z98.890 - Other specified postprocedural states (ICD-10) Hx of neck surgery (11/03/16) ?Z98.890 - Other specified postprocedural states (ICD-10) S/P trigger finger release (11/09/21) ?Z98.890 - Other specified postprocedural states (ICD-10) History of carpal tunnel release (02/15/22) ?Z98.890 - Other specified postprocedural states (ICD-10) Family History Mother Lung cancer Brother History of kidney cancer Brother History of kidney cancer Sister Leukemia Social History Narrative: former smoker (quit 1984) Smoking Status: Former smoker What tobacco products do you use: cigarettes Smoking quit date/years: >15 years ago Do you use any of these nicotine containing products: None How often do you have a drink containing alcohol: never AUDIT-C Alcohol total score: 0 Non-prescribed substance use: denies use Exam Narrative: Exam Narrative: Very pleasant. Seems generally uncomfortable. Skin is warm and dry generally pale. Has a back brace in place which she is able to removed for exam. Breathing easily. Heart in regular rate and rhythm. Abdomen is little tympanitic across the upper abdomen. Normal to hyperactive bowel sounds. She is moderately tender to palpation in the right mid abdomen. Abdomen is soft. Well-healing low midline abdominal incision with Steri-Strips still in place. Similar appearing centrally at the low back. Const: Vital Signs, click to edit/add: Vital Signs - 24 hr 07/07/25 20:31 07/08/25 00:00 07/08/25 00:17 Temperature 97.5 F L Pulse Rate 78 Pulse Rate [Pulse Oximeter] 88 Respiratory Rate 18 16 Blood Pressure 155/72 H Blood Pressure [Ri ght Upper Arm] 146/73 H Pulse Oximetry 98 98 100 Oxygen Delivery Me thod Room Air Room Air 07/08/25 01:58 Temperature Pulse Rate Pulse Rate [Pulse Oximeter] 80 Respiratory Rate 18 Blood Pressure Blood Pressure [Ri ght Upper Arm] 156/72 H Pulse Oximetry Oxygen Delivery Me thod Documenting provider has reviewed patient's vital signs: yes Course Vital Signs Vital signs: Initial Vital Signs Temperature 97.5 F L 07/07/25 20:31 Temperature Source Temporal Artery Scan 07/07/25 20:31 Pulse Rate 88 07/07/25 20:31 Respiratory Rate 18 07/07/25 20:31 Blood Pressure 146/73 H 07/07/25 20:31 Blood Pressure Mean 97 07/07/25 20:31 Pulse Oximetry 98 07/07/25 20:31 Oxygen Delivery Method Room Air 07/07/25 20:31 Vital Signs Temperature 97.5 F L 07/07/25 20:31 Pulse Rate 88 07/07/25 20:31 Respiratory Rate 18 07/07/25 20:31 Blood Pressure 146/73 H 07/07/25 20:31 Pulse Oximetry 98 07/07/25 20:31 Oxygen Delivery Method Room Air 07/07/25 20:31 Temperature 97.5 F L 07/07/25 20:31 Pulse Rate 80 07/08/25 01:58 Respiratory Rate 18 07/08/25 01:58 Blood Pressure 156/72 H 07/08/25 01:58 Pulse Oximetry 100 07/08/25 00:17 Oxygen Delivery Method Room Air 07/08/25 00:17 Medications Administered Medications: Discontinued Medications Generic Name Dose Route Start Last Admin Trade Name Freq PRN Reason Stop Dose Admin Hydromorphone HCl 0.5 mg 07/07/25 23:56 07/08/25 00:15 Hydromorphone 0.5 Mg/0.5 Ml Inj IVP 07/07/25 23:57 0.5 mg ONCE ONE Administration Miscellaneous Medication 376 ml 07/08/25 00:33 07/08/25 01:05 Doc/Min Oil/Mag Cit/Sod Phos 376 Ml Enema WI 07/08/25 00:34 376 ml ONCE ONE Administration Medical Decision Making MDM Narrative Medical decision making narrative: Doubtful to have a bowel obstruction. I think constipation and related abdominal/intestinal colic is most likely answer here. Likely triggered by opiates. Does not appear to be retaining urine. Would double check labs and hemoglobin if this is related to some sort of bleeding or other fluid collection. Abdominal x-ray independently reviewed by me with maybe a little excessive colonic stool. No concerning air-fluid levels. Postoperative hardware noted. With normal labs with expected hemoglobin of 7.8 and clinical picture of constipation I think reasonable to treat for this with an enema. She is hesitant but in agreement to proceed. If unsuccessful to have a bowel movement or bowel movement does not relieve pain, would proceed with further imaging at that time. CRP consistent I think with recent surgery. Radiology over-read below Indication: Lower abdominal cramping, sharp pain. Technique: Abdomen 4 view. Comparison: None. Findings: Bowel: Nonobstructive bowel gas pattern. Moderate colonic stool burden. Other: No sign of free air. No sign of soft tissue mass. The lung bases are clear. Extensive fusion changes of the lower thoracic, lumbar, sacrum, and sacroiliac joints. Right pelvis surgical clips. Degenerative changes of the bilateral hips. Impression: No evidence of an acute intra-abdominal process. Dictated by Delmer Baker MD @ 07/07/2025 11:32:53 PM Nursing reported that placement of this enema seem to be striking solid stool but went up to use the bathroom Luz did not feel like there was anything down there to go. After couple of further attempts at bowel movement, discussed next steps in management whether this is imaging or larger volume enema. Decided to use a pink lady enema. Finally with decent result of well-formed stooling. Amena does feel markedly improved in her abdomen. Eager to leave the emergency department. See patient discharge plan for further discussion Keep pushing fluids. For further bowel clean out on top of what was attempted here, consider drinking a bottle of magnesium citrate and repeating the next day if no significant result. If you feel plugged, certainly could place a suppository overnight or place an enema and repeat an hour if no good result. Since you have something like Benefiber I suppose you can use that. Dilute in at least 8 oz of liquid maybe 2-3 times daily. Suggest to stool consistency and consider taking this over the next week or 2. Another option might be MiraLax dosed the same. If you are continuing to take an opiate, would pair that with a senna-containing product. Consider taking senna once or twice daily regardless over the next few days. Return for marked increase in persistent abdominal pain, repeated vomiting, associated fever. Medical Records Medical records reviewed: Yes I reviewed the patient's medical records Lab Data Lab results reviewed: Yes I reviewed the patient's lab results Labs: Lab Results 07/07/25 Range/Units 22:12 WBC 7.80 (4.50-11.00) K/uL RBC 2.61 L (4.00-5.20) m/uL Hgb 7.8 L* (12.0-16.0) gm/dL Hct 24.4 L (33.0-51.0) % MCV 94 (80-100) fL MCH 30 (26-34) pg MCHC 32 (32-36) gm/dL RDW Coeff of Jeff 13.9 (11.5-15.5) % Plt Count 535 H (140-440) K/uL Neut % (Auto) 78.3 H (42.0-72.0) % Lymph % (Auto) 11.2 L (20-44) % [place] % (Auto) 8.6 (0.0-11.0) % Eos % (Auto) 0.5 (0.0-7.0) % Baso % (Auto) 0.4 (0.0-3.0) % Neut # (Auto) 6.10 (1.7-7.0) K/uL Lymph # (Auto) 0.90 (0.90-2.90) K/uL [place] # (Auto) 0.70 (0.00-0.90) K/UL Eos # (Auto) 0.04 (0.00-0.50) K/uL Baso # (Auto) 0.03 (0.00-0.30) K/uL Abs Immat Gran (auto) 0.08 (0.00-0.30) K/uL Imm/Tot Granulo (auto) 1.0 % Sodium 131 L (135-149) mmol/L Potassium 4.2 (3.6-5.1) mmol/L Chloride 98 (96-114) mmol/L Carbon Dioxide 27 (20-32) mmol/L Anion Gap 6 L (7-15) mEq/L BUN 8 (7-30) mg/dL Creatinine 0.7 (0.5-1.5) mg/dL Estimated Creat Clear 51.30 Estimated GFR 92 ml/min Glucose 116 H (60-115) mg/dL Calcium 8.7 (8.4-10.6) mg/dL C-Reactive Protein 4.0 H (0.5-1.0) mg/dL Discharge Plan Discharge Clinical Impression: Abdominal pain, Constipation Patient Disposition: Home w/ Parent or Adult Condition: Improved Additional Instructions: Keep pushing fluids. For further bowel clean out on top of what was attempted here, consider drinking a bottle of magnesium citrate and repeating the next day if no significant result. If you feel plugged, certainly could place a suppository overnight or place an enema and repeat an hour if no good result. Since you have something like Benefiber I suppose you can use that. Dilute in at least 8 oz of liquid maybe 2-3 times daily. Suggest to stool consistency and consider taking this over the next week or 2. Another option might be MiraLax dosed the same. If you are continuing to take an opiate, would pair that with a senna-containing product. Consider taking senna once or twice daily regardless over the next few days. Return for marked increase in persistent abdominal pain, repeated vomiting, associated fever. Prescriptions: No Action escitalopram oxalate 20 mg tablet 20 mg PO QDAY divalproex 500 mg tablet extended release 24 hr 500 mg PO BID pyridoxine (vitamin B6) 10 mg tablet 10 mg PO QDAY cholecalciferol (vitamin D3) 10 mcg (400 unit) capsule 10 mcg PO QDAY cyclobenzaprine 10 mg tablet 10 mg PO .HS Qty: 30 2RF diclofenac sodium 1 % gel 2 g topical ONCE PRN Rx Instructions: apply to single elbow, wrist or hand; for hand includes palm/fingers/back of hand hydromorphone 2 mg tablet 2 - 4 mg PO Q4H PRN (Reason: pain) Follow Up/Referrals: Gisell Stephenson MD [Primary Care Provider, Family Practice] Stand Alone Forms: [employer] Info Instructions
--- NOTE | 2025-07-07 21:55 | CRLHL7_ITS ---
For Patients: As a result of the Century Cures Act, medical imaging exams and procedure reports are released immediately into your electronic medical record. You may view this report before your referring provider. If you have questions, please contact your health care provider. Indication: Lower abdominal cramping, sharp pain. Technique: Abdomen 4 view. Comparison: None. Findings: Bowel: Nonobstructive bowel gas pattern. Moderate colonic stool burden. Other: No sign of free air. No sign of soft tissue mass. The lung bases are clear. Extensive fusion changes of the lower thoracic, lumbar, sacrum, and sacroiliac joints. Right pelvis surgical clips. Degenerative changes of the bilateral hips. Impression: No evidence of an acute intra-abdominal process. Dictated by Delmer Baker MD @ 07/07/2025 11:32:53 PM (Electronically Signed)
[2025-07-07 22:22] LABS: Hematocrit 24.4 % (33.0-51.0); Immature Granulocytes Abs Auto 0.08 K/uL (0.00-0.30); Immature Granulocytes Pct Auto 1.0 %; Lymphocytes Absolute Auto 0.90 K/uL (0.90-2.90); Mean Corpuscular HGB Conc 32 gm/dL (32-36); Mean Corpuscular Hemoglobin 30 pg (26-34); Mean Corpuscular Volume 94 fL (80-100); RDW Coefficient of Variation % 13.9 % (11.5-15.5); Red Blood Count 2.61 m/uL (4.00-5.20); White Blood Count* 7.80 K/uL (4.50-11.00)
[2025-07-07 22:24] LABS: Hemoglobin* 7.8 gm/dL (12.0-16.0); Slide Review Reflex No
[2025-07-07 22:33] LABS: Chloride* 98 mmol/L (96-114); Potassium* 4.2 mmol/L (3.6-5.1); Sodium* 131 mmol/L (135-149)
[2025-07-07 22:36] LABS: Blood Urea Nitrogen* 8 mg/dL (7-30); Creatinine* 0.7 mg/dL (0.5-1.5); Est. Creatinine Clearance* 51.30; Estimated Glomerular Filt Rate 92 ml/min
[2025-07-07 22:37] LABS: Anion Gap 6 mEq/L (7-15); Calcium* 8.7 mg/dL (8.4-10.6); Carbon Dioxide* 27 mmol/L (20-32); Glucose* 116 mg/dL (60-115)
[2025-07-08] VITALS: O2SAT 98
[2025-07-08 00:17] VITALS: BP 155/72; PULSE 78; RESP 16; O2SAT 100
[2025-07-08] MEDS: DOC/MIN OIL/MAG CIT/SOD PHOS 376 ML ENEMA PR (01:05)
[2025-07-08 01:58] VITALS: BP 156/72; PULSE 80; RESP 18
== END 2025-07-08 01:59 | disposition home or self-care (01) ==
PROVIDERS: Emergency Provider Family Medicine; PCP Family Medicine
DX: K59.00 Constipation, unspecified (principal); R10.9 Unspecified abdominal pain
CPT/HCPCS: 36415; 74019; 80048; 85025; 86140; 94761; 96374; 99284; J1171

== ENCOUNTER 2025-07-17 12:32 | Emergency (ER) | payer MEDICARE, SELFPAY ==
--- OUTSIDE RECORDS SUMMARY | 2025-07-17 12:35 | XMS_ITS | Clinical Summary ---
Author Organization [employer] Address [address] [place] [address] Care Team Providers Care Golf [employer] Maker Name Role Phone Gisell Stephenson MD Primary [...] Active Problems Problem Noted Date Diagnosed Date Iron deficiency anemia 07/16/2025 Anemia due to acute blood loss 07/07/2025 [...] Encounters Date Type Department Care Team Description 07/17/2025 Nurse Triage [address] [address] Gisell Stephenson MD Dizziness 07/16/2025 10:52 AM CDT - 07/16/2025 11:59 PM CDT Hospital Encounter [address] [place] [address] Iron deficiency anemia, unspecified iron deficiency anemia type (Primary Dx); Other specified nutritional anemias; Anemia due to acute blood loss 07/16/2025 Travel 07/14/[address] [place] [address] [place], [facility] Cancer Infusion Therapy 07/09/[address] [address] Gisell Stephenson MD Form 07/09/[address] [address] Gisell Stephenson MD Infusion Therapy 07/07/2025 Orders Only [facility] Scanner 1 scan: (1-Ord) [facility], XR ABDOMEN MIN 2V, 07/07/2025 07/07/[address] [address] Gisell Stephenson MD Lab (iron infusion ) 07/02/2025 12:45 PM CDT Office Visit [address] [address] Gisell Stephenson MD Hospital F/U ([place] [facility]) 07/02/2025 Travel 07/01/[address] [address] Gisell Stephenson MD Verbal Order 07/01/[address] [address] Gisell Stephenson MD Form 06/30/[address] [address] Gisell Stephenson MD Error-please disregard 06/30/[address] [address] Gisell Stephenson MD Outside Order (Verbal,occ,phys,skill ed) 06/30/2025 Patient Outreach [address] [address] Luz Ndiaye, RN Primary RN Care Management; Hospital F/U (Spinal stenosis, lumbar region, with neurogenic claudication, DOD 06/29/2025) 06/29/[address] [address] Gisell Stephenson MD Error-please disregard (ER) 06/26/2025 7:49 AM CDT Anesthesia Event [address] [address] Yessi Lawrence CRNA Dahl, Ashley Rose Dragavon, MD 06/26/2025 7:25 AM CDT - 06/26/2025 1:10 PM CDT Surgery [address] [address] Иван Elkins MD ALIF - Anterior Lumbar [...] - 06/29/2025 12:43 PM CDT Hospital Encounter [address] [address] Иван Elkins MD Spinal stenosis, lumbar region, with neurogenic claudication; S/P lumbar spinal fusion Discharge Disposition: Home Health 06/26/2025 Travel 06/19/2025 Orders Only [facility] [address] [place] [address] Gisell Stephenson MD 1 scan: (1-Ord) 06/18/2025 06/18/2025 1:15 PM CDT Office Visit [facility] [address] [place] [address] Gisell Stephenson MD Pre-Op Exam 06/17/2025 Travel 06/14/2025 3:15 PM CDT Ancillary Procedure [facility] [address] [place] [address] 06/14/2025 2:30 PM CDT Ancillary Procedure [facility] [address] [place] [address] [address] [place] [address] 06/14/2025 Travel 06/12/2025 Orders Only [facility] Scanner 1 scan: (1-Ord) [facility], FULL BODY SKIN EXAM, 06/12/2025 06/09/2025 Transcribe Orders [facility] [phone] Иван Elkins MD 05/05/2025 11:00 AM CDT Ancillary Procedure [address] [place] [address] 05/05/2025 Travel 04/24/2025 Transcribe Orders [facility] [phone] Иван Elkins MD 04/23/2025 Telephone [facility] [address] [place], [place] [address] Adalberto Ji MD Questions 04/23/2025 Transcribe Orders [facility] [address] [facility], [place] [address] Adalberto Ji MD 04/17/2025 Orders Only [facility] Scanner 1 scan: (1-Ord) [facility] LUM[facility] WO CONTRAST, 04/17/2025 from [...] Former Cigarettes 2 19 1 966 - 1984 Smokeless Tobacco: Never Tobacco Cessation:Counseling Given: Not [...] on file Legal Sex Female 10:50 AM DINKEY OPERATOR SLATE Gender Identity Not on file Sexual Orientation Not on file Obstetrics History Para Term AB IAB SAB Ectopic Multiple Livin g Live Births 1 1 1 1 Date Outcome GA Total Labor Labor/2nd/3rd Weight Sex Type Anes PTL Ritika A1 A5 Name Clin Term Last Filed Vital Signs Vital Sign Reading Time Taken Comments Blood Pressure 127/65 07/16/2025 11:40 AM CDT Pulse 84 07/16/2025 11:40 AM CDT Temperature 36.4 C (97.5 F) 07/16/2025 11:00 AM CDT Respiratory Rate 20 07/16/2025 11:4 0 AM CDT Oxygen Saturation 94% 07/16/2025 11: 40 AM CDT Inhaled Oxygen Concentration - - Weight 96.2 kg (212 lb) 07/02/2025 12:4 5 PM CDT with purse and shoes Height 172.7 cm (5' 8) 06/26/2025 6:20 AM CDT Body Mass Index 32.23 06/26/2025 6:20 AM CDT Plan of Treatment Upcoming Encounters Date Type Department Care Team (Late st Contact Info) Description 07/18/2025 11:00 AM CDT Appointment [address] [address] 2025 11:00 AM CDT Appointment [address] [address] 07/23/2025 11:00 AM CDT Appointment [address] [address] 07/25/2025 1:00 PM CDT Appointment [address] [address] Health Maintenance Due Date Last Done Comments [...] this topic Medical Devices Implanted Type Area Agricultural Commodities Inspector Device Identifier Shelf Expiration Date Model / Serial / Lot Bone 1-4mm 90cc Medtronic Chips Canclls Freeze Dried - [id number] Implanted:Qt y: 1 on 06/26/2025 by Иван Elkins MD at [facility] Spine Implants N/A: Lumbar Vertebrae Medtronic Spine/Ortho 07/12/2028 [id number] / [id number] / [id number] Description:At 0945 10cc of crushed cancellous bone were implanted into the anterior lumbar spine Screw Lmbr Post 6.5x35mm Solera 5.5/6 Va Cocr - Sna Implanted:Qt y: 2 on 06/26/2025 by Иван Elkins MD at [facility] Spine Implants N/A: Lumbar Vertebrae Medtronic Spine/Ortho [id number] / NA / NA Description:Posterior lumbar spine Cnnctr Lmbr 6x5.5x35mm Lat Top Cd Horizon - Sna Implanted:Qt y: 2 on 06/26/2025 by Иван Elkins MD at [facility] Spine Implants N/A: Lumbar Vertebrae Medtronic Spine/Ortho [id number] / NA / NA Description:Posterior lumbar spine Patrick Lmbr 500x5.5mm Solera 5.5/6 Stra Titnm Alloy - Sna Implanted:Qt y: 1 on 06/26/2025 by Иван Elkins MD at [facility] Spine Implants N/A: Lumbar Vertebrae Medtronic Spine/Ortho [id number] / NA / NA Description:Posterior lumbar spine Putty Easypack 5cc Magnetos - Sna Implanted:Qt y: 1 on 06/26/2025 by Иван Elkins MD at [facility] Spine Implants N/A: Lumbar Vertebrae Brain [employer] 01/25/2030 [id number] / NA / [id number] Description:Anterior lumbar spine Spacer Lmbr [id number] 8 Deg Sm Sovereign Stand Alone - Sna Implanted:Qt y: 1 on 06/26/2025 by Иван Elkins MD at [facility] Spine Implants N/A: Lumbar Vertebrae Medtronic Spine/Ortho 03/11/2033 [id number] / NA / [id number] Description:Anterior lumbar spine Screw Lmbr 5.5x20mm Sovereign Stand Alone - Sna Implanted:Qt y: 1 on 06/26/2025 by Иван Elkins MD at [facility] Spine Implants N/A: Lumbar Vertebrae Medtronic Spine/Ortho [id number] / NA / NA Description:Anterior lumbar spine 24mm X 8mm [place] Cage Implanted:Qt y: 1 on 06/26/2025 by Иван Elkins MD at [facility] Spine Implants N/A: Lumbar Vertebrae Medtronic Spine/Ortho 12/05/2032 [id number] / NA / [id number] Description:Posterior lumbar spine Set Screw Lmbr Legacy 5.5 Titnm Breakoff - Sna Implanted:Qt y: 6 on 06/26/2025 by Иван Elkins MD at [facility] Spine Implants N/A: Lumbar Vertebrae Medtronic Spine/Ortho [id number] / NA / NA Description:Posterior lumbar spine Screw Lmbr Post 6.5x50mm Solera 5.5/6 Va Cocr - Sna Implanted:Qt y: 4 on 06/26/2025 by Иван Elkins MD at [facility] Spine Implants N/A: Lumbar Vertebrae Medtronic Spine/Ortho [id number] / NA / NA Description:Posterior lumbar spine Screw Lmbr Post 5.5x50mm Solera 5.5/6 Va Cocr - Sna Implanted:Qt y: 2 on 06/26/2025 by Иван Elkins MD at [facility] Spine Implants N/A: Lumbar Vertebrae Medtronic Spine/Ortho [id number] / NA / NA Description:Posterior lumbar spine Set Screw Lmbr Ant 5.5mm Solera Break Off - [id number] Implanted:Qt y: 13 on 06/26/2025 by Иван Elkins MD at [facility] N/A: Lumbar Vertebrae Medtronic Spine/Ortho [id number] / / Bone 1-4mm 30cc Medtronic Chips Canclls Freeze Dried - [id number] Implanted:Qt y: 1 on 06/26/2025 by Иван Elkins MD at [facility] N/A: Lumbar Vertebrae Medtronic Spine/Ortho [id number] 07/20/2029 [id number] / [id number] / Bone 1-4mm 60cc Medtronic Fine Canclls Freeze Dried - [id number] Implanted:Qt y: 1 on 06/26/2025 by Иван Elkins MD at [facility] N/A: Lumbar Vertebrae Medtronic Spine/Ortho [id number] 10/01/2028 [id number] / [id number] / Explanted Type Area Agricultural Commodities Inspector Device Identifier Shelf Expiration Date Model / Serial / Lot Pin Spine 100mm Perc Reference - Sna Explanted:Qt y: 1 on 06/26/2025 by Иван Elkins MD at [facility] Spine Implants N/A: Lumbar Vertebrae Medtronic [employer] 02/17/2026 [id number] / NA / [id number] Description:Posterior lumbar spine Procedures Procedure Name Priority Date/Time Associated Diagnosis Comments SCAN-RADIOLOGY REPORT 07/07/2025 12:00 AM CDT BASIC METABOLIC PANEL Routine 07/02/2025 1:31 PM [...] cannot cover case per Alejandro- Sent Heath w/Allen email for 744 coverage 06/06 ANW // Confirmed via email w/Heath 06/09 ANWCELL SAVER-Confirmed for 744 w/Maira #[id number] 06/06 ANW // CONFIRMED WITH MAIRA 06/25 ANW Solera 5.5/6.0 Adaptix SovereignSolera [id number] x3Bm adds Mp addsPMI Ballast x2 confirmed w/Thomas Stewart [phone] 06/19 JTAutograft Cortical/Cancellous MagnetO's (Synthetic) Special Needs 5' 8.5, 89.9 kg, BMI 29.68Seizure precautions orderedHOH FUSION ANTERIOR POSTERIOR SPINE LEVEL 02 Tier 4: > 90 days 06/26/2025 7:29 AM CDT Stenosis, Lumbar - w/Neurogenic Claudication M48.062 Pseudoarthrosis M96.0 fusion status Z98.1 Case Notes 300 MINS- TABLEC-ARM PORTABLE XRAYFLIP INSERT [facility] cannot cover case per Alejandro- Sent Heath w/Allen email for 744 coverage 06/06 ANW // Confirmed via email w/Heath 06/09 ANWCELL SAVER-Confirmed for 744 w/Maira #[id number] 06/06 ANW // CONFIRMED WITH MAIRA 06/25 ANW Solera 5.5/6.0 Adaptix SovereignSolera [id number] x3Bm adds Mp addsPMI Ballast x2 confirmed w/Thomas RiveroTerry [phone] 06/19 JTAutograft Cortical/Cancellous MagnetO's (Synthetic) Special Needs [...] HANNAH BILAT SCREEN Routine 12/18/2024 12:00 AM DINKEY OPERATOR SLATE Other screening mammogram LIPID PANEL W REFLEX MEASURED LDL Routine 08/15/2024 12:36 PM CDT Hyperlipidemia, unspecified hyperlipidemia type COLONOSCOPY SCREENING Routine 12/14/2022 8:45 AM DINKEY OPERATOR SLATE Screening for colon cancer from Last 3 Months or Most Recently Relevant to Health Maintenance Results * SCAN-RADIOLOGY REPORT (07/07/2025 12:00 AM CDT) Anatomical Region Laterality Modality Other us Scanner OTHER Final Result * (ABNORMAL) IRON PLUS IRON BINDING CAP (07/02/2025 1:31 PM CDT) [facility] IRON, TOTAL 29(L) 45 - 160 mcg/dL 07/03/2025 4:47 AM CDT [facility] IRON BINDING CAPACITY 251 250 - 450 mcg/dL (calc) 07/03/2025 4:47 AM CDT [facility] % SATURATION 12(L) 16 - 45 % (calc) 07/03/2025 4:47 AM CDT [facility] Blood BLOOD SPECIMEN / Unknown [facility] / Unknown 07/02/2025 1:31 PM CDT 07/02/2025 1:32 PM CDT us iGsell Stephenson MD CHEMISTRY Final Re sult [facility] [address] [place] [address], * (ABNORMAL) CBC W PLT NO DIFF (07/02/2025 1:31 PM CDT) Only the most recent of2 resultswithin the time period is included. [facility] WHITE BLOOD CELL COUNT 8.5 3.8 - [...] HEMATOLOGY Final Re sult Performing Organization Address [facility] Number [facility] [address] [address], [place] [phone] * VITAMIN B12 (07/02/2025 1:31 PM CDT) [facility] VITAMIN B12 374 200 - 1100 pg/mL 07/03/2025 5:28 AM CDT [facility] Comment: Please Note: Although the reference [...] CHEMISTRY Final Re sult Performing Organization Address [facility] Phone Number [facility] [address] [address], [place] [phone] * (ABNORMAL) BASIC METABOLIC PANEL (07/02/2025 1:31 PM CDT) Only the most recent of3 resultswithin the time period is included. [facility] SODIUM 134(L) 135 - 146 mmol/L 07/03/2025 [...] - 110 mmol/L 07/03/2025 4:47 AM CDT [facility] Blood BLOOD SPECIMEN / Unknown [facility] / Unknown 07/02/2025 1:31 PM CDT 07/02/2025 1:32 PM CDT us Gisell Stephenson MD CHEMISTRY Final Re sult [facility] [address] [place] [address], * (ABNORMAL) HEMOGLOBIN (06/28/2025 7:59 AM CDT) Only the most recent of6 resultswithin the time period is included. Pathologist [facility] HEMOGLOBIN 7.6(L) 12.0 - 16.0 g/dL 06/28/2025 8:28 AM CDT [facility] MCV 88 80 - 100 fL 06/28/2025 8:28 AM CDT [facility] Blood BLOOD SPECIMEN / Unknown Venipuncture / Unknown 06/28/2025 7:59 AM CDT 06/28/2025 8:21 AM CDT Myrna MURRIETA HEMATOLOGY Final Result [facility] SENDOUT INTERNAL ZIP [address] [place] [address] * TRANSFUSE RBC (NURSE COMMUNICATION ORDER) (06/27/2025 8:05 PM CDT) Blood BLOOD SPECIMEN / Unknown Myrna MURRIETA NURSING BLOOD BANK Fin al Result * RBC W/O TYPE & SCREEN (06/27/2025 2:12 PM CDT) Only the most recent of2 resultswithin the time period is included. Pathologist [facility] QUANTITY 1 06/27/2025 2:12 PM CDT [facility] B[facility] Blood BLOOD SPECIMEN / Unknown 06/27/2025 2:07 PM CDT Myrna UMRRIETA BLOOD BANK Final Result Performing Organization Address City/[facility]/ZIP Co de Phone Number [facility] BLOOD BANK [address] [place] [address] * RED BLOOD CELLS EA UNIT (06/27/2025 2:11 PM CDT) Only the most recent of4 resultswithin the time period is included. Pathologist [facility] CROSSMATCH Compatible Compatible [facility] BLOOD BANK PRODUCT BLOOD TYPE A Rh Positive [facility] BLOOD BANK PRODUCT ID NUMBER [id number] [facility] BLOOD [facility] PRODUCT STATUS [facility] PRODUCT DESCRIPTION RBC -1 LR [facility] BLOOD B[facility] PRODUCT CODE [id number] [facility] BLOOD BANK ISSUE DATE/TIME 06/27/25 17:26 [facility] BLOOD BANK Myrna MURRIETA BLOOD BANK Edited Result - Final [facility] BLOOD BANK [address] [place] [address] * HEMOGLOBIN A1C (06/27/2025 10:25 AM CDT) Pathologist [facility] HEMOGLOBIN A1C SCREENING 5.3 <=6.4 % 06/27/2025 1:16 PM CDT [facility] Blood BLOOD SPECIMEN / Unknown Venipuncture / Unknown 06/27/2025 10:25 AM CDT 06/27/2025 10:52 AM CDT Narrative [facility] - 06/27/2025 1:16 PM CDT (<5.7%) Normal (5.7% to 6.4%) Indicates prediabetes (>=6.5%) Confirms diabetes Falsely low levels may be seen with: Recent Transfusion, Recent Significant Blood Loss, Hemolytic Diseases, or Falsely elevated levels may be seen with: Untreated Anemias, Splenectomy us Sandrine Gomez MD CHEMISTRY Final Result Performing Organization Address City/[facility]/ZIP Co de Phone Number [facility] SENDOUT INTERNAL ZIP [phone] [place] [address] * MAGNESIUM (06/27/2025 10:25 AM CDT) [facility] MAGNESIUM 1.9 1.6 - 2.4 mg/dL 06/27/2025 11:13 AM CDT [facility] Blood BLOOD SPECIMEN / Unknown Venipuncture / Unknown 06/27/2025 10:25 AM CDT 06/27/2025 10:52 AM CDT Corbin Sousa MD CHEMISTRY Final Res ult [facility] SENDOUT INTERNAL ZIP [address] [place] [address] * (ABNORMAL) CBC WITH AUTO DIFFERENTIAL (06/26/2025 4:30 PM CDT) [facility] WHITE BLOOD COUNT 8.7 4.5 - 11.0 thou/cu mm 06/26/2025 4:41 PM [facility] RED BLOOD COUNT 3.11(L) 4.00 - 5.20 mil/cu mm 06/26/2025 4:41 PM [facility] HEMOGLOBIN 9.5(L) 12.0 - 16.0 g/dL 06/26/2025 4:41 PM [facility] HEMATOCRIT 27.4(L) 33.0 - 51.0 % 06/26/2025 4:41 PM [facility] MCV 88 80 - 100 fL 06/26/2025 4:41 PM [facility] MCH 30.5 26.0 - 34.0 pg 06/26/2025 4:41 PM [facility] MCHC 34.7 32.0 - 36.0 g/dL 06/26/2025 4:41 PM [facility] RDW 13.2 11.5 - 15.5 % 06/26/2025 4:41 PM [facility] PLATELET COUNT 177 140 - 440 thou/cu mm 06/26/2025 4:41 PM [facility] MPV 9.2 6.5 - 11.0 fL 06/26/2025 4:41 PM [facility] NRBC 0.0 % 06/26/2025 4:41 PM [facility] ABS NRBC 0.0 thou /cu mm 06/26/2025 4:41 PM [facility] % NEUT 81.8 % 06/26/2025 4:41 PM [facility] % LYMPH 5.7 % 06/26/2025 4:41 PM [facility] % MONO 11.3 % 06/26/2025 4:41 PM [facility] % EOS 0.0 % 06/26/2025 4:41 PM [facility] % BASO 0.3 % 06/26/2025 4:41 PM [facility] % IMMATURE GRAN (METAS,MYELOS,IA OS) 0.9 % 06/26/2025 4:41 PM [facility] ABSOLUTE NEUTROPHILS 7.1(H) 1.7 - 7.0 thou/cu mm 06/26/2025 4:41 PM CDT [facility] ABSOLUTE LYMPHOCYTES 0.5(L) 0.9 - 2.9 thou/cu mm 06/26/2025 4:41 PM CDT [facility] ABSOLUTE MONOCYTES 1.0(H) <0.9 thou/cu mm 06/26/2025 4:41 PM CDT [facility] ABSOLUTE EOSINOPHILS 0.0 <0.5 thou/cu mm 06/26/2025 4:41 PM CDT [facility] ABSOLUTE BASOPHILS 0.0 <0.3 thou/cu mm 06/26/2025 4:41 PM CDT [facility] ABSOLUTE IMMATURE GRANULOCYTES(MET ,MYELOS,PROS) 0.1 <0.3 thou/cu mm 06/26/2025 4:41 PM CDT [facility] Blood BLOOD SPECIMEN / Unknown Non-Lab Venipuncture / Unknown 06/26/2025 4:30 PM CDT 06/26/2025 4:38 PM CDT us Sandra Lc Hock [employer] DR[employer] HEMATOLOGY Final Resul t [facility] SENDOUT INTERNAL ZIP [address] [address] [place] [address] * XR C-ARM EQUAL OR GREATER 2 HR (06/26/2025 3:17 PM CDT) Anatomical Region Laterality Modality Computed Radiogr aphy 06/26/2025 3:17 PM CDT Narrative 06/26/2025 5:12 PM CDT For Patients: As a result of the Century Cures Act, medical imaging exams and procedure reports are released immediately into your electronic medical record. You may view this report before your referring provider. If you have questions, please contact your health care provider. EXAM: XR C-ARM EQUAL OR GREATER 2 HR LOCATION: [facility] MEDICAL IMAGING DATE: 06/26/2025 INDICATION: free text)->Intraoperative [...] C-ARM EQUAL OR GREATER 2 HR LOCATION: [facility] MEDICAL IMAGING DATE: 06/26/2025 INDICATION: free text)->Intraoperative COMPARISON: None. TECHNIQUE: Intraoperative fluoroscopy performed during the patient'sprocedure. RADIATION DOSE: DAP 18.50 FINDINGS: 12 fluoroscopic images. 34.9 seconds of fluoroscopic time.Hardware fixation changes lumbar spine and S1/iliac wings dorsally withanterior fixation lower lumbar level. Correlate with real-time imaging. Иван Elkins MD FLUOROSCOPY Final Result * XR O-ARM FLUORO 31-120 MINUTES (06/26/2025 2:30 PM CDT) Anatomical Region Laterality Modality Computed Radiogr aphy 06/26/2025 2:30 PM CDT Narrative 06/27/2025 10:10 AM CDT For Patients: As a result of the s Act, medical imaging exams and procedure reports are released immediately into your electronic medical record. You may view this report before your referring provider. If you have questions, please contact your health care provider. EXAM: XR O-ARM FLUORO 31-120 MINUTES LOCATION: [facility] MEDICAL IMAGING DATE: 06/26/2025 INDICATION: free text)->Intraoperative [...] EXAM: XR O-ARM FLUORO 31-120 MINUTES LOCATION: [facility] MEDICAL IMAGING DATE: 06/26/2025 INDICATION: free text)->Intraoperative [...] Blood BLOOD SPECIMEN / Unknown Yessi Lawrence [employer] NURSING BLOOD BANK Final R esult * [...] Comment: Supplemental O2: supplemental oxygen. Comment:. Vessel Mental Health Therapist Additional supplies used to locate vessel: no Needle Catheter size: 20 G. Comment:. Catheter length: 12 cm. Comment: Events: no complications. Humble Mcdonald MD ANESTHESIA PX NOTE ORDERABLES Fi nal Result * (ABNORMAL) Arterial Blood Gas (06/26/2025 10:28 AM CDT) PH, ARTERIAL 7.35 7.35 - 7.45 06/26/2025 10:37 AM T [facility] PCO2, ARTERIAL 46(H) 32 - 45 mmHg 06/26/2025 10:37 AM T [facility] PO2, ARTERIAL 174(H) 83 - 108 mmHg 06/26/2025 10:37 AM T [facility] HCO3, ARTERIAL 25 21 - 28 mmol/L 06/26/2025 10:37 AM [facility] BASE EXCESS, ARTERIAL -0.6 -2.0 - 3.0 06/26/2025 10:37 AM T [facility] O2 SATURATION, ARTERIAL 99(H) 94 - 98 % 06/26/2025 10:37 AM T [facility] INSPIRED O2 06/26/2025 10:37 AM T [facility] Comment:Unit of Measure: Lit ers (L) if <=20; Percent (%) if >20 PATIENT TEMPERATURE 37.0 Degrees C 06/26/2025 10:37 AM T [facility] Blood ARTERIAL BLOOD SPECIMEN / Unknown Arterial / Unknown 06/26/2025 10:28 AM CDT 06/26/2025 10:34 AM CDT Yessi Lawrence [employer] CHEMISTRY Final Resu lt [facility] SENDOUT INTERNAL ZIP [address] [place] [address] * XR SPINE LUMBAR 2 VIEWS PORTABLE [...] XR SPINE LUMBAR 2 VIEWS PORTABLE LOCATION: [facility] MEDICAL IMAGING DATE: 06/26/2025 INDICATION: Pain. COMPARISON: [...] XR SPINE LUMBAR 2 VIEWS PORTABLE LOCATION: [facility] MEDICAL IMAGING DATE: 06/26/2025 INDICATION: Pain. COMPARISON: [...] EXAM: XR SPINE 1 VIEW PORTABLE LOCATION: [facility] MEDICAL IMAGING DATE: 06/26/2025 INDICATION: Pain COMPARISON: [...] EXAM: XR SPINE 1 VIEW PORTABLE LOCATION: [facility] MEDICAL IMAGING DATE: 06/26/2025 INDICATION: Pain COMPARISON: [...] - 100 mg/dL 06/26/2025 6:58 AM CDT [facility] Blood BLOOD SPECIMEN / Unknown 06/26/2025 6:29 AM CDT 06/26/2025 6:58 AM CDT Иван Elkins MD CHEMISTRY Final Result Performing Organization Address City/[facility]/ZIP Co de Phone Number [facility] SENDOUT INTERNAL ZIP [address] [place] [phone] * Type and Screen (06/26/2025 6:26 AM CDT) ABORH A Rh Positive 06/26/2025 7:32 AM CDT [facility] BLOOD BANK ANTIBODY SCREEN Negative Negative 06/26/2025 7:32 AM CDT [facility] BLOOD BANK SPECIMEN EXPIRATION DATE/TIME 06/29/25 23:59 06/26/2025 7:32 AM CDT [facility] BLOOD BANK Blood BLOOD SPECIMEN / Unknown Non-Lab Venipuncture / Unknown 06/26/2025 6:26 AM CDT 06/26/2025 6:30 AM CDT Иван Elkins MD BLOOD BANK Final Result Performing Organization Address City/[facility]/ZIP Co de Phone Number [facility] BLOOD BANK [address] [place] [phone] * SCAN-CARDIAC STRIP (06/26/2025 12:00 AM CDT) Narrative 06/26/2025 12:00 AM CDT Ordered by an unspecified provider. us Other Clinical Staff OTHER Final Resul t [...] MD @ 06/14/2025 6:45:41 PM (Electronically Signed) Иван Elkins MD MR Final Result * [...] neural foramina are patent. Procedure Note Callum Beck DO - 06/14/2025 For Patients: As a [...] MD @ 06/14/2025 6:52:07 PM (Electronically Signed) Иван Elkins MD MR Final Result * [...] recommended in 3-5 years. Norma Epps PA-C [facility] 05/07/2025 Narrative 05/07/2025 4:27 PM CDT For Patients: Results are automatically released to your [facility] ([facility]) account once available, in compliance with federal regulations. This means that you may see your results before your provider has had a chance to review them. Please allow 2-3 business days for your provider to comment on the results. XR DXA Bone Mineral Density (BMD) EXAM LOCATION: [address] [address] PATIENT NAME: Luz Craig DATE OF : [...] two scanners are made by the same safety sitter. PROCEDURE: Dual-energy x-ray absorptiometry performed with routine [...] 10%. 10-year probability of hip fracture: 1.5%. Иван Elkins MD DEXA Final Result * SCAN-MRI INTERPRETATION (04/17/2025 12:00 AM CDT) Anatomical Region Laterality Modality Other us Scanner OTHER Final Result * XR MAMMO HANNAH BILAT SCREEN (12/18/2024 12:00 AM DINKEY OPERATOR SLATE) Anatomical Region Laterality Modality BREASTS, Breast Left, Breast Right Bilateral Mammography Gisell Stephenson MD MAMMO Final Re sult * (ABNORMAL) LIPID PANEL W REFLEX MEASURED LDL (08/15/2024 12:36 PM CDT) CHOLESTEROL, TOTAL 223(H) <200 mg/dL [facility] LDL-C. Valdemar SS et al. BASIA. 2013;310(19): 7988-3805 (http://education.Thinktwice/faq/EDY176) CHOL/HDLC RATIO 2.8 <5.0 (calc) [facility] NON HDL CHOLESTEROL 142(H) <130 mg/dL (calc) [facility] Comment: For patients with diabetes plus 1 major ASCVD risk factor, treating to a non-HDL-C goal of <100 mg/dL (LDL-C of <70 mg/dL) is considered a therapeutic option. Blood BLOOD SPECIMEN / Unknown 08/15/2024 12:36 PM CDT 08/15/2024 12:37 PM CDT Narrative [facility] - 08/16/2024 6:08 AM CDT FASTING:NO FASTING: NO Gisell Stephenson MD CHEMISTRY Final Re sult [facility] [address] [place] [address], [employer] [facility] [address] [place] [address] * COLONOSCOPY (12/14/2022 8:42 AM DINKEY OPERATOR SLATE) 12/14/2022 8:42 AM DINKEY OPERATOR SLATE Narrative Transcriptions Valdemar Perez MD - 12/14/2022 9:47 AM CST Patient Name: Luz Craig Procedure Date: 12/14/2022 Gender: Female Date of : 1950 Admit Type: Outpatient Procedure: Colonoscopy Proceduralist: Valdemar Perez MD , Meggan Galvez, RN (Nurse), Ivonne Jean (Nurse) Referring MD: Gisell [...] candidate for conscious sedation. The endoscope PCF-[id number] was passed through the anus andadvanced to [...] 8:42 AM Procedure Code(s): --- Professional --- 09947, Colonoscopy, flexible; with biopsy, single or multiple Diagnosis Code(s): --- Professional --- Z12.11, Encounter for screening formalignant neoplasm of colon D12.8, Benign neoplasm of rectum CPT copyright 2020 [employer]. All rights reserved. The codes documented in this report are preliminary and upon medical biller/coder reviewmay be revised to meet current compliance requirements. 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
--- OUTSIDE RECORDS SUMMARY | 2025-07-17 12:35 | XMS_ITS | Encounter Summary ---
Author Organization [facility] Address [address] [place] [address]. [place] [address] Care Team Providers Care Global Category Manager Name Role Phone Gisell Stephenson MD Primary Care Provider + Encounter Details Date Type Department Care Team (Late st Contact Info) Description 09/23/2015 [facility] Only [facility] [address] [place] [address] Kanu Woody MD 280 [facility] [address] [place] [address] Pre-operative laboratory examination (Primary Dx) Social History [...] PCR (09/23/2015 2:45 PM CDT) Specimen Description [facility] Methicillin Resist/Sens S. aureus PCR Negative MRSA Negative: SA Negative MRSA and Staphylococcus aureus target DNA not detected, presumed negative for MRSA and SA colonization or the number of bacteria present may be below the limit of detection for the assay. FDA approved assay performed using [employer] Mobile GeneXpert(R) real-time PCR. NEG [facility] 09/23/2015 2:45 PM CDT 09/23/2015 3:14 PM CDT us Kanu Woody MD LAB - MICRO GENERAL ORDER MEGHAN Final Result [facility] [address] [place] [address], [facility] [address] [place] [address], [facility] [phone] documented in this encounter Visit Diagnoses Diagnosis Pre-operative laboratory examination- Primary Pre-procedural laboratory examination documented in this encounter Care Teams Global Category Manager Relationship Specialty Start Date End Date Gisell Stephenson MD [address] [address] PCP - General Family Practice 08/13/14 documented as of this encounter
--- OUTSIDE RECORDS SUMMARY | 2025-07-17 12:35 | XMS_ITS | Encounter Summary ---
Author Organization [facility] Address [address] [place] [address] Care Team Providers Care Sap Ppm Consultant Name Role Phone Gisell Stephenson MD Primary Care Provider + Encounter Details Date Type Department Care Team (Late st Contact Info) Description 08/26/[address] [facility] [address] [place] [address] Kanu Woody MD 280 [facility] N [facility] [address] [place] [address] Preoperative examination, unspecified (Primary Dx) Social History [...] Primary documented in this encounter Care Teams Sap Ppm Consultant Relationship Specialty Start Date End Date Gisell Stephenson MD [facility] [address] [place] [address] PCP - General Family Practice 08/13/14 documented as of this encounter
--- OUTSIDE RECORDS SUMMARY | 2025-07-17 12:35 | XMS_ITS | Clinical Summary ---
Author Organization [facility] Address [address] [place] [address] Care Team Providers Care Linen Supply Load Builder Name Role Phone Gisell Stephenson MD Primary [...] Comments Blood Pressure 109/77 11/01/2022 8:45 AM HAT BLOCKING OPERATOR Pulse 73 11/01/2022 9:25 AM HAT BLOCKING OPERATOR Temperature 36.1 C (96.9 F) 11/01/2022 9:25 AM HAT BLOCKING OPERATOR Respiratory Rate 16 11/01/2022 9:25 AM HAT BLOCKING OPERATOR Oxygen Saturation 97% 11/01/2022 9:25 AM HAT BLOCKING OPERATOR Inhaled Oxygen Concentration - - Weight 89.4 kg (197 lb) 11/01/2022 5:40 AM HAT BLOCKING OPERATOR Height 175.3 cm (5' 9) 11/01/2022 5:40 AM HAT BLOCKING OPERATOR Body Mass Index 29.09 11/01/2022 5:40 AM HAT BLOCKING OPERATOR Plan of Treatment Health Maintenance Due Date [...] this topic Medical Devices Implanted Type Area Staff Writer Device Identifier Shelf Expiration Date Model / Serial / Lot Graft Bone Foam Pack Vitoss 2.5ml Sparkroad Active Implanted:Qty : 1 on 11/03/2016 by Kanu Woody MD at [facility] Bone/Tissu e/Biologic N/A: Spine Cervical ORTHOVITA 06/23/2018 / / [id number] Graft Bone Foam Pack Vitoss 1.2ml Sparkroad Active Implanted:Qty : 1 on 11/03/2016 by Kanu Woody MD at [facility] Bone/Tissu e/Biologic N/A: Spine Cervical ORTHOVITA 10/26/2017 [id number] / / [id number] Imp Plate Strk Aviator 3 Level Size 48 [id number] Implanted:Qty : 1 on 11/03/2016 by Kanu Woody MD at [facility] Metallic Hardware/A nchor N/A: Spine Cervical [employer] [id number] / / [id number] Imp Scr Strk Aviator Vari Self Tap 4.59u78rg [place] [id number] Implanted:Qty : 1 on 11/03/2016 by Kanu Woody MD at [facility] Metallic Hardware/A nchor N/A: Spine Cervical [employer] [id number] / / [id number] Imp Scr Strk Aviator Vari Self Drill 4x14mm Blue [id number] Implanted:Qty : 1 on 11/03/2016 by Kanu Woody MD at [facility] Metallic Hardware/A nchor N/A: Spine Cervical [employer] [id number] / / [id number] Imp Scr Strk Aviator Fixed Self Drill 4x14mm Purple [id number] Implanted:Qty : 6 on 11/03/2016 by Kanu Woody MD at [facility] Metallic Hardware/A nchor N/A: Spine Cervical [employer] [id number] / / [id number] Imp Spacer Strk Avs As 8i90x42ht 4deg [id number] Implanted:Qty : 2 on 11/03/2016 by Kanu Woody MD at [facility] Metallic Hardware/A nchor N/A: Spine Cervical [employer] [id number] / / [id number] Imp Spacer Strk Avs As [id number] 4deg [id number] Implanted:Qty : 1 on 11/03/2016 by Kanu Woody MD at [facility] Metallic Hardware/A nchor N/A: Spine Cervical [employer] [id number] / / [id number] Graft Bone Foam Pack Vitoss 10ml Bio Active Implanted:Qty : 1 on 08/21/2014 by Kanu Woody MD at [facility] N/A: Spine Lumbar ORTHOVITA 03/26/2015 / / [id number] Graft Bone Crush Canc 15ml [id number] Implanted:Qty : 1 on 08/21/2014 by Kanu Woody MD at [facility] N/A: Spine Lumbar MUSCULOSKELETAL ALEXIS 03/13/2017 [id number] / [id number] / Interbody Fusion Device [id number] Implanted:Qty : 1 on 08/21/2014 by Kanu Woody MD at [facility] N/A: Spine Lumbar [employer] 09/24/2020 [id number] / / [id number] Imp Scr Danek 6.5x45mm Legacy Ti [id number] Implanted:Qty : 2 on 08/21/2014 by Kanu Woody MD at [facility] N/A: Spine Lumbar [employer] INC-DANEK [id number] / / [id number] Graft Bone Crush Canc 30ml [id number] Implanted:Qty : 1 on 10/01/2015 by Kanu Woody MD at [facility] N/A: Spine Lumbar MUSCULOSKELETAL ALEXIS 12/08/2017 538657 / [id number] 21 / Plate 4hole 39mm Implanted:Qty : 1 on 10/01/2015 by Kanu Woody MD at [facility] N/A: Spine Lumbar [employer] [id number] / / [id number] 2014 Osteoset Esorbable Bead Kit Fast Cure Implanted:Qty : 1 on 10/01/2015 by Kanu Woody MD at [facility] N/A: Spine Lumbar [employer] 03/26/2022 [id number] / / [id number] Description:Tobramycin powde r 1.2 grams x2 mixed into kit Lot# [id number] Exp 02/11 Lot#[id number] Exp 02/11 Imp Scr Syn Can 4.0x20mm Ft Ss 206.020 Implanted:Qty : 1 on 10/01/2015 by Kanu Woody MD at [facility] N/A: Spine Lumbar SYNTHES-STRATEC 206.020 / / Screw Jeff 6.5 X 25 Mm Implanted:Qty : 1 on 10/01/2015 by Kanu Woody MD at [facility] N/A: Spine Lumbar [employer] [id number] / / [id number] NOV 2014 Screw Jeff 6.5 X 30 Mm Implanted:Qty : 3 on 10/01/2015 by Kanu Woody MD at [facility] N/A: Spine Lumbar [employer] [id number] / / [id number] 2014 Description:Anterior lumbar spine Imp Scr Medt 5.5/6.0mm Solera 8.5x70mm Ma [id number] Implanted:Qty : 2 on 10/01/2015 by Kanu Woody MD at [facility] N/A: Spine Lumbar [employer] [id number] / / [id number] 31NOV 2014 Imp Scr Set Medt Solera Break Off 5.5mm Ti [id number] Implanted:Qty : 3 on 10/01/2015 by Kanu Woody MD at [facility] N/A: Spine Lumbar [employer] [id number] / / [id number] 31NOV 2014 Imp Scr Medt 5.5/6.0mm Solera 6.5x45mm Ma [id number] Implanted:Qty : 1 on 10/01/2015 by Kanu Woody MD at [facility] N/A: Spine Lumbar [employer] [id number] / / [id number] 31NOV 2014 Imp Scr Danek Legacy Breakoff Set 5.5mm Ti [id number] Implanted:Qty : 6 on 10/01/2015 by Kanu Woody MD at [facility] N/A: Spine Lumbar [employer]-DANEK [id number] / / [id number] 2014 [address] Solera Str 5.2n360ww [facility] [id number] Implanted:Qty : 1 on 10/01/2015 by Kanu Woody MD at [facility] N/A: Spine Lumbar [employer] [id number] / / 10/01/15-0304 Impulse Supllies Implanted:Qty : 1 on 10/01/2015 by Kanu Woody MD at [facility] N/A: Spine Lumbar Hemodynamic Supplies Implanted:Qty : 1 on 10/01/2015 by Kanu Woody MD at [facility] N/A: Spine Lumbar Interbody Spacer 12deg X H=18mmxw=30mm xl=24mm Implanted:Qty : 1 on 10/01/2015 by Kanu Woody MD at [facility] N/A: Spine Lumbar [employer]IC 04/10/2023 [id number] / / [id number] Graft Allograft Nucell Xlg Nc-[id number] Implanted:Qty : 1 on 10/01/2015 by Kanu Woody MD at [facility] N/A: Spine Lumbar [employer] 07/23/2016 NC-1003 / [id number] / Graft Bone Foam Pack Vitoss 10ml Bio Active [id number] Implanted:Qty : 1 on 10/01/2015 by Kanu Woody MD at [facility] N/A: Spine Lumbar ORTHOVITA 06/26/[id number] / / [id number] Explanted Type Area Staff Writer Device Identifier Shelf Expiration Date Model / Serial / Lot Imp Scr Danek Legacy Breakoff Set 5.5mm Ti [id number] Implanted:Qty: 6 on 08/21/2014 by Kanu Woody MD at [facility] Explanted:Qty: 6 on 10/01/2015 at [facility] N/A: Spine Lumbar [employer]-DANEK [id number] / / [id number] Imp Patrick Danek 5.5x70mm Ti Implanted:Qty: 2 on 08/21/2014 by Kanu Woody MD at [facility] Explanted:Qty: 2 on 10/01/2015 at [facility] N/A: Spine Lumbar MEDTR[employer]IC[employer] INC-NICKY [id number] / / [id number] Procedures Procedure Name Priority Date/Time Associated Diagnosis Comments GLUCOSE Routine 11/04/2016 6:13 AM HAT BLOCKING OPERATOR Post-operative pain from Last 3 Months or Most Recently Relevant to Health Maintenance Results * (ABNORMAL) Glucose (11/04/2016 6:13 AM HAT BLOCKING OPERATOR) Glucose 128(H) 70 - 99 mg/dL [facility] Blood specimen (specimen) 11/04/2016 6:13 AM HAT BLOCKING OPERATOR 11/04/2016 6:50 AM HAT BLOCKING OPERATOR us Kanu Woody MD LAB - BLOOD ORDERABLES Fi nal Result [facility] [address] [place], [place] [address] [phone] from Last 3 Months or Most Recently Relevant to Health Maintenance Insurance [facility] MEDICARE Advance Directives For more information, please contact: [phone] Documents on File Type Date Recorded 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 Advance Directives and Living Will 08/26/2014 HEALTH CARE POWER OF PHARMACY DIRECTOR 02/27/1991 * Full Code (Latest Code Status on File) Date Activated Date Inactivated Comments 11/03/2016 1:50 PM 11/04/2016 9:31 PM * Full Code Date Activated Date Inactivated Comments 10/01/2015 4:47 PM 10/04/2015 6:57 PM * Full Code Date Activated Date Inactivated Comments 08/21/2014 12:18 PM 08/23/2014 3:07 PM Care Teams Linen Supply Load Builder Relationship Specialty Start Date End Date Gisell Stephenson MD [facility] [id number] [place] [address] PCP - General Family Practice 08/13/14
--- OUTSIDE RECORDS SUMMARY | 2025-07-17 12:35 | XMS_ITS | Encounter Summary ---
Author Organization [facility] Address [address] [place] [address]. [place] [address] Care Team Providers Care Cart Pusher Name Role Phone Gisell Stephenson MD Primary Care Provider + Encounter Details Date Type Department Care Team (Late st Contact Info) Description 08/26/2015 Orders Only [facility] [address] [place] [address] Kanu Woody MD 280 [facility] N [facility] [address] [place] [address] Preoperative examination, unspecified (Primary Dx) Social History [...] PCR (08/27/2015 5:45 PM CDT) Specimen Description [facility] Methicillin Resist/Sens S. aureus PCR Negative MRSA Negative: SA Negative MRSA and Staphylococcus aureus target DNA not detected, presumed negative for MRSA and SA colonization or the number of bacteria present may be below the limit of detection for the assay. FDA approved assay performed using Beyond Verbal GeneXpert(R) real-time PCR. [facility]G [facility] 08/27/2015 5:45 PM CDT 08/27/2015 6:24 PM CDT us Kanu Woody MD LAB - MICRO GENERAL ORDER MEGHAN Final Result [facility] [address] [place] [address], [facility] [address] [place] [address], [facility] [phone] documented in this encounter Visit Diagnoses Diagnosis Preoperative examination, unspecified- Primary documented in this encounter Care Teams Cart Pusher Relationship Specialty Start Date End Date Gisell Stephenson MD [facility] [id number] [place] [address] PCP - General Family Practice 08/13/14 documented as of this encounter
--- OUTSIDE RECORDS SUMMARY | 2025-07-17 12:35 | XMS_ITS | Encounter Summary ---
Author Organization [facility] Address [address] [place] [address]. [place] [address] Care Team Providers Care Lens Inspector Name Role Phone Gisell Stephenson MD Primary Care Provider + Encounter Details Date Type Department Care Team (Late st Contact Info) Description 10/27/2016 [facility] Only [facility] [address] [place] [address] Kanu Woody MD 280 [facility] N [facility] [address] [place] [address] Pre-operative laboratory examination (Primary Dx) Social History [...] Resistant Staph Aureus PCR (10/27/2016 12:40 PM RAILCAR BRAKE OPERATOR) Specimen Description [facility] Methicillin Resist/Sens S. aureus PCR Negative MRSA Negative: SA Negative MRSA and Staphylococcus aureus target DNA not detected, presumed negative for MRSA and SA colonization or the number of bacteria present may be below the limit of detection for the assay. FDA approved assay performed using [employer]ify GeneXpert(R) real-time PCR. NEG [facility] 10/27/2016 12:4 0 PM RAILCAR BRAKE OPERATOR 10/27/2016 2:33 PM RAILCAR BRAKE OPERATOR us Kanu Woody MD LAB - MICRO GENERAL ORDER MEGHAN Final Result [facility] [address] [place] [address], [facility] [address] [place] [address], [facility] [phone] documented in this encounter Visit Diagnoses Diagnosis Pre-operative laboratory examination- Primary Pre-procedural laboratory examination documented in this encounter Care Teams Lens Inspector Relationship Specialty Start Date End Date Gisell Stephenson MD [facility] [address] [place] [address] PCP - General Family Practice 08/13/14 documented as of this encounter
--- OUTSIDE RECORDS SUMMARY | 2025-07-17 12:35 | XMS_ITS | Encounter Summary ---
Author Organization [place] Address [address] [place] [address] Care Team Providers Care Whiting Can Worker Name Role Phone Gisell Stephenson MD Primary Care Provider + Encounter Details Date Type Department Care Team (Late st Contact Info) Description 08/13/2014 [facility] Only [facility] [address] [place] [address] Kanu Woody MD 280 [facility] N [facility] [address] [place] [address] Preoperative examination, unspecified (Primary Dx) Social History [...] Primary documented in this encounter Care Teams Whiting Can Worker Relationship Specialty Start Date End Date Gisell Stephenson MD [facility] [id number] [place] [address] PCP - General Family Practice 08/13/14 documented as of this encounter
--- OUTSIDE RECORDS SUMMARY | 2025-07-17 12:35 | XMS_ITS | Clinical Summary ---
Author Organization [facility] Address [address] [place] [address] Care Team Providers Care News Broadcaster Name Role Phone Unavailable Primary Care Provider [...] for each transition of care or referral. 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
[2025-07-17 13:22] VITALS: BP 120/75; PULSE 103; RESP 18; TEMP 36.6; O2SAT 99; BMI 28.9
== END 2025-07-17 14:35 | disposition left against medical advice (07) ==
PROVIDERS: Emergency Provider Family Medicine; PCP Family Medicine
DX: Z53.21 Procedure and treatment not carried out due to patient leaving prior to being seen by health care provider (principal)
CPT/HCPCS: 99281